=== PATIENT | female | born 1965 | race Caucasian/White ===

== ENCOUNTER 2021-12-23 11:55 | Inpatient (IN) | payer MEDICARE, MEDICAID, SELFPAY ==
[2021-12-23] VITALS (125 sets, daily range): BP systolic 63–133; BP diastolic 39–97; PULSE 74–140; RESP 13–41; TEMP 36.8–38.2; O2SAT 90–100
--- NOTE | 2021-12-23 12:00 | RT.EKG_ITS ---
APPROVED REPORT Exam: Resting ECG Reason for Exam: Low glucose Patient Location: E HR:104 bpm ECG Measurements Heart Rate 104 AXIS OH 162 P 74 QRSd 75 QRS -8 QT 338 T 84 QTc 445 Conclusion Sinus tachycardia...rate> 99
--- NOTE | 2021-12-23 12:00 | DI.CT_ITS ---
Exam(s) CT HEAD - STROKE PROTOCOL EXAM: CT HEAD - STROKE PROTOCOL CLINICAL HISTORY: comatose. TECHNIQUE: Imaging Protocol: Axial computed tomography images with coronal and sagittal reformatted images were created and reviewed COMPARISON: No exams were available for comparison FINDINGS: Ventricles and Extra axial spaces: Normal in size and morphology for the patient's age. Hemorrhage: None. Cerebral parenchyma: Normal. Midline shift: None. Brainstem/Cerebellum: Normal. Calvarium: Normal. Visualized Paranasal sinuses/Mastoids: Minimal mucosal thickening Soft Tissues: Unremarkable. IMPRESSION: No acute intracranial process. RADIATION DOSE DELIVERED: 666.01mGy.cm Total DLP DATA REPOSITORY: All CT scans at this facility are submitted to the National Radiology Data Registry (NRDR) Dose Index Registry (DIR) with the [employer] (A[employer]). RADIATION OPTIMIZATION: All CT scans at this facility use at least one of these dose optimization te chniques: automated exposure control; mA and/or kV adjustment per patient size (includes targeted exa ms where dose is matched to clinical indication); or iterative reconstruction.
--- NOTE | 2021-12-23 12:01 | DI.RAD_ITS ---
Exam(s) XR CHEST 1V IN DI DEPT EXAM: XR CHEST 1V IN DI DEPT CLINICAL HISTORY: unconscious TECHNIQUE: 2D digital imaging was performed. COMPARISON: No exams were available for comparison FINDINGS: There is an endotracheal tube with the tip projecting at the upper aspect of the aortic arch. LUNGS: Clear. No pleural abnormality seen. HEART: Normal. AORTA: Normal. BONES: Unremarkable for age. Soft tissues: Unremarkable. IMPRESSION: Satisfactory position of endotracheal tube. No acute pulmonary findings. DATA REPOSITORY: RADIATION DOSE DELIVERED:
[2021-12-23] MEDS: Dextrose 50%-Water 25 GM/50 ML SYR IVP ×3 (12:10→16:16)
[2021-12-23] MEDS: Naloxone 0.4 MG/ML VIAL IVP (12:11)
[2021-12-23] MEDS: Etomidate 20 MG/10 ML VIAL IVP (12:15)
[2021-12-23] MEDS: Succinylcholine 200 MG/10 ML VIAL 100 MG IVP (12:15)
[2021-12-23] MEDS: MIDAZOLAM 50 MG in Normal Saline 90 ML 23.587 MG IV (12:23)
--- NOTE | 2021-12-23 12:24 | W.ED.GENAD ---
Discharge Plan Disposition Patient Disposition: [facility] IN[facility]IENT Condition: Stable Discharge Details Clinical Impression: Hypoglycemia Primary Care Provider: Unknown,Unknown ED Provider: Arnoldo Hammer Home Meds and New Rx's Prescriptions: No Action simvastatin 20 mg Tablet 20 mg PO DAILY docusate sodium [Colace] 100 mg Capsule 100 mg PO BID lisinopril 5 mg Tablet 5 mg PO DAILY albuterol 90 mcg/actuation Aerosol 180 mcg INHALATION Q6H Medical Decision Making 56-year-old female brought by [facility]. By report her glucose was 20 overnight and she received her regular NovoLog at 2 AM per bystanders report to EMS. EMS was called this midday for unconscious person. They arrived to find her hypoglycemic (40) and unconscious. She was administered glucagon by EMS with subsequent rise of fingerstick glucose to 80. 5 minutes prior to presentation the patient began to have decerebrate posturing. Patient arrives unresponsive with positive gag reflex, nasal trumpet is in place, she is nonverbal, eyes are closed, she withdraws from pain and demonstrates decerebrate posturing. Breath sounds are rhonchorous bilaterally. She is hyperventilating approximately 25 to 30 breaths/min. Placed on a environmental monitoring technician, IV access established, patient given 1 amp D50 despite the recent elevation on route by EMS of the glucose, as well as Narcan. These interventions had no effect. Patient subsequently intubated with 7.5 ET tube. We were able to obtain the patient's pharmacy records from the [facility]. Her prescriptions include Colace 100 mg twice daily, lisinopril 5 mg daily, simvastatin 20 mg daily, albuterol inhaler every 6 hours if needed, Lantus 60 units twice daily which was not filled since October 12 for 25-day supply, NovoLog which has not filled in over a year, and diltiazem ER 120 daily. Broad differential diagnosis considered including metabolic abnormality, effects of prolonged hypoglycemia, infectious process, anoxic brain injury, supratentorial lesion such as hemorrhage/mass. Patient referred for laboratory testing, CT imaging and chest x-ray. Diagnostic studies: CT head read as unremarkable. Chest x-ray does not reveal active disease. Labs: ABG . Her blood cell count is elevated at 18, hematocrit 36, platelets 285. There is a left shift present. Chemistries reveal sodium 139, potassium 3.1, bicarb 30, BUN 6, creatinine 0.7. Glucose measured at 74, magnesium 1.6. LFTs unremarkable. Troponin negative. Family (her aunt, Cintia Arana) will report that patient recently moved to their home, she has been there approximately 2 weeks. She moved from her sister's home, Mandy Ornelas, who's number [phone]. They are unsure of her regular medical care and do not know her regular physician. They states she has had poor and intermittent ongoing care for some months time, which led her to transition to their home. Patient was noted to be alert and awake yesterday afternoon, able to go to the grocery store. They confirmed that she had a glucose of 24 overnight at approximately 2 AM and was given what is believed to be short acting insulin (novolog) as her current caregiver state they were told to do this if her sugar was low. Per her aunt Cintia and her Sister Mandy, the patient's power of employee benefits attorney and decision may be held by her stepfather Franco Elam. The family is to have him call the ER when they are able to make contact with him. The patient's vital signs have stabilized, she no longer has decerebrate posturing. I believe she likely had prolonged hypoglycemia and end organ effect on the brain with injury causing coma. She will require admission for further management. Lab Data Lab results reviewed: Yes I reviewed the patient's lab results. Labs: Laboratory Results - last 24 hr 12/23/21 12/23/21 12/23/21 12:05 12:05 12:05 WBC 18.32 H RBC 4.38 Hgb 12.8 Hct 36.8 MCV 84 MCH 29.2 MCHC 34.8 RDW 12.2 Plt Count 285 MPV 10.9 Immature Gran % 0.5 Neutrophils % 89.5 Lymphocytes % 4.9 Monocytes % 4.9 Eosinophils % 0.0 Basophils % 0.2 Nucleated RBC % 0.0 Absolute Neutrophils 16.40 H Absolute Lymphocytes 0.90 L Absolute Monocytes 0.90 H Absolute Eosinophils 0.00 Absolute Basophils 0.04 VBG Lactate Sodium 139 Potassium 3.7 Chloride 101 Carbon Dioxide 30.0 Anion Gap 8.0 BUN 6 L Creatinine 0.7 Est GFR (CKD-EPI 2020) 102.71 Glucose 74 Calcium 9.3 Magnesium 1.6 L Total Bilirubin 0.4 AST 26 ALT 16 Alkaline Phosphatase 62 Troponin I < 50 Total Protein 8.4 H Albumin 3.8 Ethyl Alcohol < 3.0 Cancelled 12/23/21 13:40 WBC RBC Hgb Hct MCV MCH MCHC RDW Plt Count MPV Immature Gran % Neutrophils % Lymphocytes % Monocytes % Eosinophils % Basophils % Nucleated RBC % Absolute Neutrophils Absolute Lymphocytes Absolute Monocytes Absolute Eosinophils Absolute Basophils VBG Lactate 1.5 H Sodium Potassium Chloride Carbon Dioxide Anion Gap BUN Creatinine Est GFR (CKD-EPI 2020) Glucose Calcium Magnesium Total Bilirubin AST ALT Alkaline Phosphatase Troponin I Total Protein Albumin Ethyl Alcohol HPI General Mode of arrival: EMS. Date/Time Provider Initiated Documentation: 12/23/21 12:30. Limitations to Documentation: altered mental status. Information obtained by: EMS. History of Present Illness 56 year old F presents to the emergency department with the chief complaint of Unconscious, described as severe, Quality is described as constant, Patient started experiencing this hour(s) and it has been constant. No exacerbating factors reported . Patient did receive the following treatments prior to arrival, other (Glucagon by EMS) Related Data Home Medications Medication Instructions Recorded Confirmed albuterol 90 mcg/actuation aerosol 180 mcg inhalation Q6H 12/23/21 12/23/21 inhaler docusate sodium 100 mg capsule 100 mg PO BID 12/23/21 12/23/21 (Colace) lisinopril 5 mg tablet 5 mg PO DAILY 12/23/21 12/23/21 simvastatin 20 mg tablet 20 mg PO DAILY 12/23/21 12/23/21 Allergies Allergy/AdvReac Type Severity Reaction Status Date / Time codeine AdvReac Intermediate Skin Rash Unverified 12/23/21 14:42 General Stated Complaint: AMS/LOC KAMLA: 1 Review of Systems Unobtainable due to endotracheal tube and Unobtainable due to mental status PFSH All Active Problems (Updated 12/23/21 @ 14:51 by Arnoldo Hammer MD) Hypoglycemia (Acute) Social History Smoking risk assessment performed?: No Exam Narrative Exam Narrative: GEN: Positive gag reflex, withdraws to pain HEAD: Normocephalic, atraumatic ENT: Mucous membranes moist, oropharynx unremarkable, External ear exam unremarkable EYES: Disconjugate gaze, pupils are fixed and midrange NECK: Supple with normal musculature CHEST/RESP: Diffuse rhonchorous breath sounds CARDIOVASCULAR: Regular and tachycardic, no murmur, rub aida. Palpable rad pulse bilateral ABDOMEN: Soft, nontender, no mass. +Bowel sounds EXT: no edema, no rash Neuro: No verbal response, withdraws from pain, decerebrate posturing, eyes closed Psych: Unable to assess Procedures Intubation Time out performed: Yes sedative: Etomidate Mg Given: 10 paralytic: Succinylcholine Mg Given: 100 Laryngoscope: Nicholas ET Tube Size: 7.5 ET Tube Uncuffed: Yes Tube Secured Depth (cm): 23 Tube Secured Location: teeth Tube Placement Confirmation: visualized tube passing through cords and equal breath sounds bilaterally Patient Tolerated Procedure: well Intubation Complications: none
[2021-12-23] MEDS: Midazolam 2 MG/2 ML VIAL IVP ×2 (12:26→15:04)
--- NOTE | 2021-12-23 12:48 | DI.VRAD_ITS ---
PROCEDURE INFORMATION: Exam: CT Head Without Contrast Exam date and time: 12/23/2021 12:40 PM Age: 56 years old Clinical indication: Stroke-like symptoms; Other: Comotose TECHNIQUE: Imaging protocol: Computed tomography of the head without contrast. Other technique: STROKE PROTOCOL was implemented. COMPARISON: No relevant prior studies available. FINDINGS: Brain: Normal. No intraxial or extraaxial hemorrhage. No infarct visible at this time. Unremarkable white matter. No mass effect. No significant involutional change. Cerebral ventricles: Normal. No ventriculomegaly or midline shift. Pituitary gland and sella: Normal. No enlargement. Paranasal sinuses: Visualized sinuses are unremarkable. No fluid levels or mucosal thickening. Mastoid air cells: Visualized mastoid air cells are well aerated. Bones/joints: Unremarkable. No acute fracture. Soft tissues: Unremarkable. Vasculature: No significant atherosclerotic calcification. IMPRESSION: Normal head CT. ASSESSMENT: ASPECTS ([place] Stroke Program Early CT Score) is 10. Dictated and Authenticated by: Arnoldo Ray MD. Ordering:KAREN Mclaughlin MD
--- NOTE | 2021-12-23 12:59 | DI.VRAD_ITS ---
PROCEDURE INFORMATION: Exam: XR Chest Exam date and time: 12/23/2021 12:32 PM Age: 56 years old Clinical indication: Injury or trauma; Other: Found comotose TECHNIQUE: Imaging protocol: Radiologic exam of the chest. Views: 1 view. COMPARISON: No relevant prior studies available. FINDINGS: Tubes, catheters and devices: Endotracheal tube is in place about 4.5 cm above the jen. Lungs: Lungs are clear with no infiltrate or nodule. Pleural spaces: Unremarkable. No pleural effusion. No pneumothorax. Heart/Mediastinum: Cardiomediastinal silhouette is normal. Bones/joints: Unremarkable. Other findings: Patient is rotated [place]. IMPRESSION: No active cardiopulmonary disease. Dictated and Authenticated by: Arnoldo Ray MD. Ordering:KAREN Mclaughlin MD
[2021-12-23 13:01] LABS: Abs Immature Grans 0.09 10^3/uL (0.0-0.06); Absolute Basophil Count 0.04 10^3/uL (0.0-0.2); Basophils % 0.2; HCT 36.8 % (36.0-46.0); HGB 12.8 g/dL (11.2-15.7); Immature Grans % 0.5; Lymphocytes % 4.9; MCH 29.2 pg (27.0-33.0); MCHC 34.8 % (32.0-36.0); MCV 84 fL (80-95); MPV 10.9 fL (8.0-11.0); Monocytes % 4.9; Neutrophils % 89.5; Platelet Count 285 10^3/uL (130-400); RBC 4.38 10^6/uL (3.93-5.22); RDW 12.2 % (11.7-14.6); WBC 18.32 10^3/uL (4.4-10.8)
[2021-12-23 13:25] LABS: ALT 16 U/L (14-59); AST 26 U/L (15-37); Albumin 3.8 g/dL (3.4-5.0); Alkaline Phosphatase 62 U/L (46-116); BUN 6 mg/dL (7-18); Bilirubin, Total 0.4 mg/dL (0.2-1.0); CREATININE 0.7 mg/dL (0.55-1.02); Calcium 9.3 mg/dL (8.5-10.1); Chloride 101 mmol/L (98-107); Estimated GFR 102.71 (mL/min/1.73m2); Glucose 74 mg/dL (74-106); Magnesium 1.6 mg/dL (1.8-2.4); Potassium 3.7 mmol/L (3.5-5.1); Sodium 139 mmol/L (136-145); Total Protein 8.4 g/dL (6.4-8.2); Troponin I < 50 ng/L (<or=60)
[2021-12-23 13:26] LABS: ETHANOL BLOOD < 3.0 mg/dL (<10)
[2021-12-23 13:45] LABS: Lactate 1.5 mmol/L (0.6-1.4)
[2021-12-23] MEDS: levETIRAcetam 1,000 MG in Normal Saline 100 ML 400 MG IVPB (13:55)
[2021-12-23 13:57] LABS: INR 1.5 (0.9-1.1); Prothrombin Time 15.2 sec (9.3-11.0)
[2021-12-23] MEDS: Normal Saline 1,000 ML 1000 ML IV (13:57)
[2021-12-23 14:11] LABS: BE 2 mmol/L (-2-3); HCO3 26 mmol/L (22-26); pCO2 40 mmHg (35-45); pH 7.43 (7.35-7.45); sO2 96 % (95-98); tCO2 24 mmol/L (23-27)
[2021-12-23 14:15] LABS: FIO2 45 %; Site Left Radial
[2021-12-23 14:16] LABS: pO2 71 mmHg (80-105)
[2021-12-23 14:18] LABS: Salicylate < 2.8 mg/dL (<2.8)
[2021-12-23 14:20] LABS: Bilirubin Negative (Negative); Blood Small (Negative); Clarity Clear (Clear); Glucose >=1000 mg/dL (Negative); Ketones Negative (Negative); Leukocyte Esterase Negative (Negative); Nitrite Negative (Negative); Urobilinogen 0.2 EU/dL (Up TO 0.2); pH 8.5 (5-8)
[2021-12-23 14:20] LABS: Acetaminophen < 2 ug/mL (10-30)
[2021-12-23] MEDS: MAGNESIUM SULFATE 1 GM/100 ML BAG IVPB ×2 (14:22→18:41)
[2021-12-23 14:29] LABS: Bacteria Negative HPF (Negative); C & S Indicated? No; Casts 0-2 Hyaline LPF (Negative); Crystals Negative HPF (Negative); Epithelial Cells Few HPF (Negative); Mucus Trace (Negative)
[2021-12-23 14:47] LABS: *AMPHETAMINES SCREEN URINE Negative (Negative); *BARBITURATES SCREEN URINE Negative (Negative); *BENZODIAZEPINES SCREEN URINE Positive (Negative); Cannabinoids THC Negative (Negative); Cocaine Screen,Urine Negative (Negative); METHADONE URINE SCREEN Negative (Negative); OPIATES URINE SCREEN Negative (Negative)
[2021-12-23 14:52] LABS: Tricyclic Antidepressants Negative (Negative)
[2021-12-23 14:57] LABS: COVID-19 PCR Negative (Negative); Influenza A PCR Negative (Negative); Influenza B PCR Negative (Negative); RSV PCR Negative (Negative)
[2021-12-23 15:03] LABS: Source Nasopharynx
[2021-12-23] MEDS: DEXTROSE 10%-WATER 500 ML 50 ML IV (15:13)
[2021-12-23] MEDS: MIDAZOLAM 50 MG in Normal Saline 90 ML IV (15:26)
[2021-12-23] MEDS: ACETAMINOPHEN 1,000 MG/100 ML BTL 400 MG IVPB (16:02)
--- NOTE | 2021-12-23 16:33 | W.PM.HP.N ---
Date of service: 12/23/21 Time of Service: 16:33 Assessment and Plan Assessment and plan (1) Acute metabolic encephalopathy: Status: Acute Assessment and plan: unclear whether or not she had a seizure earlier however given her prior seizures and a prolonged hypoglycemia patient she should be covered for possible seizure. She got 1000 mg of Keppra in the emergency department. I will continue Keppra 1000 mg IV every 12 hours. Check EEG on Saturday. Check MRI of the brain on Saturday if she has not improved on her mental status. Consult neurology. Avoid hypotension and hypoxemia and hypoglycemia. Continue D10 drip continue mechanical ventilatory support with a focus on maintaining good oxygenation. Currently SPO2 is 100% on 50% FiO2. She is not requiring much PEEP which is currently at 5 cm. Avoid hyperventilation as this will drive down CO2 increase cerebral vasoconstriction. Critical care time spent interviewing family and examining the patient, reviewing studies, discussing case with patient's nurse and consulting physicians (Dr. Hammer) was 60 minutes (2) Hypoglycemia: Status: Acute Assessment and plan: Continue D10 drip monitor blood sugars every hour; goal is glucose 140 to 200 (3) Acute respiratory failure: Status: Acute Assessment and plan: secondary to above. continue (4) Hypomagnesemia: Status: Acute Assessment and plan: replace parenteral magnesium; monitor levels (5) Insulin-requiring or dependent type II diabetes mellitus: Status: Acute Assessment and plan: monitor glucose q1h and replace w/ D10; I will also give her LR to balance out the hypotonicity of the D10 and monitor her BMP; once her glucose has been pawel for 4hr I think the D10 can be replaced w/ D5LR History of Present Illness History of Present Illness Chief Complaint: coma, hypoglycemia Narrative: 53-year-old right handed female with a history of diabetes mellitus with chronic insulin use brought in by [facility] because of unconsciousness and hypoglycemia with a glucose of 40 upon EMS arrival. Patient was administered glucagon by EMS with a rise of her fingerstick blood sugar to 80. Patient was severely obtunded with positive gag reflex and had nasal trumpet in place she was nonverbal and was demonstrating decerebrate posturing. She had labored breathing hyperventilating at 30 breaths/min with sonorous and rhonchorous breath sounds. In the emergency department she was given 1 amp of dextrose 50% after IV access was established she was placed on a cardiac catheterization technologist and she was given Narcan with no improvement in her mental status. She was subsequently intubated with 7.[address] Arnoldo Hammer, emergency room physician, subsequently was able to obtain further history from the family as well as a medication list from her pharmacy at [facility] in [place]. Apparently the patient is supposed to take Lantus 60 units twice a day and last had a 25-day supply filled October 12, her NovoLog has not been filled in over a year, other prescriptions include Colace 100 mg twice daily, lisinopril 5 mg daily simvastatin 20 mg daily, albuterol inhaler every 6 hours as needed, diltiazem ER 120 mg daily. Patient has had an unsettled home life and is moved from family member to family member. Patient apparently recently moved to her aunts home, [place] where she has been staying for the past 2 weeks. Previous that she lives with her Sister Mandy Ornelas. Her aunt is unsure of who her regular medical care is through and who her regular physician is. However it is learned from the prescriptions from [facility] in [facility] the patient receives her care through [facility]. Family states patient was last known to be alert and awake yesterday afternoon was able to go the grocery store but around 2 AM the patient had a glucose level of 24 and the patient was given what is believed to be short acting insulin (NovoLog) as her current caregiver states they were told to do this if her sugar was low. Both her aunt Cintia and her Sister Mandy indicated that the patient's power of securities attorney and decision making was held by her stepfather Franco Elam. Home the family indicated they would contact and have them call the hospital. Patient's work-up included routine labs including a CMP which demonstrated normal renal function BUN of 6 creatinine 0.7 normal electrolytes with the exception of a magnesium of 1.6, normal LFTs, normal troponin I, CBC demonstrated white count 18,300 with no anemia hemoglobin 12.8 g hematocrit 36% platelet count 35,000. Coagulation studies were abnormal with an INR of 1.5 and a pro time of 15.2 blood lactate level on admission was elevated at 1.5 initial ABG on 45% FiO2 demonstrated pH 7.43, PCO2 of 40 PO2 71 bicarbonate 26. Unclear as to what the rest of her respiratory settings were on. Urinalysis is clear yellow with elevated specific gravity 1.020 and a pH 8.5 trace of protein small amount of blood 3-5 red cells 3-5 white cells negative for leukocyte Estrace and nitrates and a glucose level greater than thousand (this was obtained after being given D50) Image included chest x-ray that showed no active cardiopulmonary disease endotracheal tube was in place 4.5 cm above the jen. Noncontrast CT scan of the head was normal. ECG shows sinus tachycardia rate of [address] or T wave changes. Patient is now admitted to the hospital for treatment of hypoglycemic episode with possible hypoglycemic and/or an anoxic brain injury. Patient remains intubated on mechanical ventilation for airway protection and ventilatory support. Patient was started on D10 drip per my recommendation to Dr. 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; born w/ mental retardation Diverticulosis History of CVA (cerebrovascular accident) Hypercholesterolemia Psychiatric illness per ER documentation from [facility] Seizure per her sister, she has had prior seizures but is not on any AED; unclear cause; patient does not drink alcohol per her sister Mandy Surgical History (Updated 12/23/21 @ 17:42 by Nito Mejia MD) S/P tubal ligation Social History (Updated 12/23/21 @ 17:38 by Nito Mejia MD) Smoking/Tobacco Use Status: Never Smoking risk assessment performed?: Yes Alcohol Intake: never Drug use: Never Meds Allergies and Home Medications Allergies Allergy/AdvReac Type Severity Reaction Status Date / Time codeine AdvReac Intermediate Skin Rash Unverified 12/23/21 14:42 Home Medications Medication Instructions Recorded Confirmed Type albuterol 90 mcg/actuation aerosol 180 mcg inhalation Q6H 12/23/21 12/23/21 History inhaler docusate sodium 100 mg capsule 100 mg PO BID 12/23/21 12/23/21 History (Colace) lisinopril 5 mg tablet 5 mg PO DAILY 12/23/21 12/23/21 History simvastatin 20 mg tablet 20 mg PO DAILY 12/23/21 12/23/21 History Exam Narrative Exam Narrative: Red head middle-aged female who is intubated and mechanically ventilated and currently sedated on midazolam BP is low in the high 80's systolic which came up over 100 mm after discontinuation of midazolam drip HEENT: pupils pin point and nonreactive; negative Doll's eyes; no noticeable nystagmus w/ cold calorics but she did withdraw w/ shrugging her shoulder w/ stimulation; no scleral icterus; poor dentition; she has slight lip laceration/abrasion of the lower lip; no fasciculations of her tongue Neck: supple, no JVD; normal carotid pulses; no bruits; no adenopathy or thyromegaly Lungs: clear anteriorly; diminished breath sounds over the bases posteriorly Heart: RRR, no murmur, rub, gallop or thrill or heave; PMI is at apex, non-displaced Abdomen: soft, nontender, nondistended, a few scattered bowel sounds; no organomegaly Extremities: tatoo over her right arm; right wrist w/ skin abrasion; no purulent discharge, no edema or cyanosis; good capillary refill; she has multiple skin sores over her legs and arms that appear healing w/ scabs, she has abrasion over right patella w/ scab; left shoulder w/ what appears to have been needle injection sites; none of her skin sores appear to be infected, i.e. no purlent drainage; the one over her right wrist is fresh w/ serous drainage Neuro: she withdraws to painful stimulation; no gag reflex; pupils and ocular reflexes as noted above; Babinski is absent; (great toes down going and no fanning of other toes); she is not exhibiting decerebrate posturing which she was reportedly demonstrating in the ER Results Labs Result diagrams: 12/23/21 12:05 12/23/21 12:05 Labs: Laboratory Results - last 24 hr 12/23/21 12/23/21 12/23/21 12:05 12:05 12:05 WBC 18.32 H RBC 4.38 Hgb 12.8 Hct 36.8 MCV 84 MCH 29.2 MCHC 34.8 RDW 12.2 Plt Count 285 MPV 10.9 Immature Gran % 0.5 Neutrophils % 89.5 Lymphocytes % 4.9 Monocytes % 4.9 Eosinophils % 0.0 Basophils % 0.2 Nucleated RBC % 0.0 Absolute Neutrophils 16.40 H Absolute Lymphocytes 0.90 L Absolute Monocytes 0.90 H Absolute Eosinophils 0.00 Absolute Basophils 0.04 PT INR ABG Sample Site ABG pH ABG pCO2 ABG pO2 ABG HCO3 ABG Total CO2 ABG O2 Saturation ABG Base Excess VBG Lactate FiO2 Sodium 139 Potassium 3.7 Chloride 101 Carbon Dioxide 30.0 Anion Gap 8.0 BUN 6 L Creatinine 0.7 Est GFR (CKD-EPI 2020) 102.71 Glucose 74 Calcium 9.3 Magnesium 1.6 L Total Bilirubin 0.4 AST 26 ALT 16 Alkaline Phosphatase 62 Troponin I < 50 Total Protein 8.4 H Albumin 3.8 Urine Color Urine Clarity Urine pH Ur Specific Curtis Urine Protein Urine Ketones Urine Blood Urine Nitrite Urine Bilirubin Urine Urobilinogen Ur Leukocyte Esterase Urine RBC Urine WBC Ur Epithelial Cells Urine Crystals Urine Bacteria Urine Casts Urine Mucus Ur Culture Indicated? Urine Glucose Salicylates Urine Opiates Screen Urine Methadone Screen Acetaminophen Ur Barbiturates Screen Ur Tricyclics Screen Ur Amphetamines Screen U Benzodiazepines Scrn Urine Cocaine Screen Ur THC Screen Ethyl Alcohol < 3.0 Cancelled COVID-19 Source SARS-CoV-2 (PCR) Influenza Type A (PCR) Influenza Type B (PCR) RSV (PCR) 12/23/21 12/23/21 12/23/21 13:40 13:40 13:40 WBC RBC Hgb Hct MCV MCH MCHC RDW Plt Count MPV Immature Gran % Neutrophils % Lymphocytes % Monocytes % Eosinophils % Basophils % Nucleated RBC % Absolute Neutrophils Absolute Lymphocytes Absolute Monocytes Absolute Eosinophils Absolute Basophils PT 15.2 H INR 1.5 H ABG Sample Site ABG pH ABG pCO2 ABG pO2 ABG HCO3 ABG Total CO2 ABG O2 Saturation ABG Base Excess VBG Lactate 1.5 H FiO2 Sodium Potassium Chloride Carbon Dioxide Anion Gap BUN Creatinine Est GFR (CKD-EPI 2020) Glucose Calcium Magnesium Total Bilirubin AST ALT Alkaline Phosphatase Troponin I Total Protein Albumin Urine Color Urine Clarity Urine pH Ur Specific Curtis Urine Protein Urine Ketones Urine Blood Urine Nitrite Urine Bilirubin Urine Urobilinogen Ur Leukocyte Esterase Urine RBC Urine WBC Ur Epithelial Cells Urine Crystals Urine Bacteria Urine Casts Urine Mucus Ur Culture Indicated? Urine Glucose Salicylates < 2.8 Urine Opiates Screen Urine Methadone Screen Acetaminophen < 2 Ur Barbiturates Screen Ur Tricyclics Screen Ur Amphetamines Screen U Benzodiazepines Scrn Urine Cocaine Screen Ur THC Screen Ethyl Alcohol COVID-19 Source SARS-CoV-2 (PCR) Influenza Type A (PCR) Influenza Type B (PCR) RSV (PCR) 12/23/21 12/23/21 12/23/21 14:05 14:05 14:08 WBC RBC Hgb Hct MCV MCH MCHC RDW Plt Count MPV Immature Gran % Neutrophils % Lymphocytes % Monocytes % Eosinophils % Basophils % Nucleated RBC % Absolute Neutrophils Absolute Lymphocytes Absolute Monocytes Absolute Eosinophils Absolute Basophils PT INR ABG Sample Site Left Radial ABG pH 7.43 ABG pCO2 40 ABG pO2 71 L ABG HCO3 26 ABG Total CO2 24 ABG O2 Saturation 96 ABG Base Excess 2 VBG Lactate FiO2 45 Sodium Potassium Chloride Carbon Dioxide Anion Gap BUN Creatinine Est GFR (CKD-EPI 2020) Glucose Calcium Magnesium Total Bilirubin AST ALT Alkaline Phosphatase Troponin I Total Protein Albumin Urine Color Yellow Urine Clarity Clear Urine pH 8.5 H Ur Specific Curtis 1.020 Urine Protein Trace H Urine Ketones Negative Urine Blood Small H Urine Nitrite Negative Urine Bilirubin Negative Urine Urobilinogen 0.2 Ur Leukocyte Esterase Negative Urine RBC 3-5 H Urine WBC 3-5 Ur Epithelial Cells Few Urine Crystals Negative Urine Bacteria Negative Urine Casts 0-2 Hyaline Urine Mucus Trace Ur Culture Indicated? No Urine Glucose >=1000 H Salicylates Urine Opiates Screen Negative Urine Methadone Screen Negative Acetaminophen Ur Barbiturates Screen Negative Ur Tricyclics Screen Negative Ur Amphetamines Screen Negative U Benzodiazepines Scrn Positive A Urine Cocaine Screen Negative Ur THC Screen Negative Ethyl Alcohol COVID-19 Source SARS-CoV-2 (PCR) Influenza Type A (PCR) Influenza Type B (PCR) RSV (PCR) 12/23/21 14:10 WBC RBC Hgb Hct MCV MCH MCHC RDW Plt Count MPV Immature Gran % Neutrophils % Lymphocytes % Monocytes % Eosinophils % Basophils % Nucleated RBC % Absolute Neutrophils Absolute Lymphocytes Absolute Monocytes Absolute Eosinophils Absolute Basophils PT INR ABG Sample Site ABG pH ABG pCO2 ABG pO2 ABG HCO3 ABG Total CO2 ABG O2 Saturation ABG Base Excess VBG Lactate FiO2 Sodium Potassium Chloride Carbon Dioxide Anion Gap BUN Creatinine Est GFR (CKD-EPI 2020) Glucose Calcium Magnesium Total Bilirubin AST ALT Alkaline Phosphatase Troponin I Total Protein Albumin Urine Color Urine Clarity Urine pH Ur Specific Curtis Urine Protein Urine Ketones Urine Blood Urine Nitrite Urine Bilirubin Urine Urobilinogen Ur Leukocyte Esterase Urine RBC Urine WBC Ur Epithelial Cells Urine Crystals Urine Bacteria Urine Casts Urine Mucus Ur Culture Indicated? Urine Glucose Salicylates Urine Opiates Screen Urine Methadone Screen Acetaminophen Ur Barbiturates Screen Ur Tricyclics Screen Ur Amphetamines Screen U Benzodiazepines Scrn Urine Cocaine Screen Ur THC Screen Ethyl Alcohol COVID-19 Source Nasopharynx SARS-CoV-2 (PCR) Negative Influenza Type A (PCR) Negative Influenza Type B (PCR) Negative RSV (PCR) Negative Last Vital Signs Temp 38.2 C H 12/23/21 15:55 Pulse 113 H 12/23/21 16:00 Resp 33 H 12/23/21 16:01 BP 133/66 12/23/21 16:00 Pulse Ox 96 12/23/21 14:00
[2021-12-23 16:48] LABS: BE 1 mmol/L (-2-3); HCO3 26 mmol/L (22-26); pCO2 38 mmHg (35-45); pH 7.44 (7.35-7.45); pO2 215 mmHg (80-105)
[2021-12-23 16:51] LABS: Site Left Radial; sO2 > 99 % (95-98)
[2021-12-23 16:52] LABS: FIO2 60 %
[2021-12-23 17:30] LABS: Lab Add On Test DONE
[2021-12-23 17:53] LABS: Hemoglobin A1C 6.5 % (<5.7)
[2021-12-23] MEDS: AMPICILLIN/SULBACTAM 3 GM in Normal Saline 100 ML IVPB (18:30)
[2021-12-23] MEDS: Enoxaparin 40 MG/0.4 ML SYR SC (18:41)
[2021-12-23] MEDS: Pantoprazole 40 MG VIAL IVP (18:41)
[2021-12-23 18:49] LABS: Procalcitonin < 0.1 ng/mL
[2021-12-23 18:54] LABS: Troponin I < 50 ng/L (<or=60)
[2021-12-23] MEDS: Normal Saline 500 ML IV ×3 (20:10→23:11)
[2021-12-23] MEDS: Dextrose 50%-Water 25 GM/50 ML SYR (20:19)
[2021-12-23] MEDS: DEXTROSE 10%-WATER 500 ML 100 ML IV (20:56)
[2021-12-24] VITALS (154 sets, daily range): BP systolic 74–156; BP diastolic 37–84; PULSE 56–109; RESP 0–32; TEMP 36.9–38.2; O2SAT 93–100
[2021-12-24] MEDS: Normal Saline 500 ML IV (00:11)
[2021-12-24] MEDS: ACETAMINOPHEN 1,000 MG/100 ML BTL 400 MG IVPB ×2 (00:18→08:22)
[2021-12-24] MEDS: Dextrose 50%-Water 25 GM/50 ML SYR ×2 (00:38→06:31)
[2021-12-24] MEDS: levETIRAcetam 1,000 MG in Normal Saline 100 ML 400 MG IVPB ×2 (01:24→12:09)
[2021-12-24] MEDS: AMPICILLIN/SULBACTAM 3 GM in Normal Saline 100 ML IVPB ×3 (01:24→14:57)
[2021-12-24] MEDS: DEXTROSE 10%-WATER 500 ML 100 ML IV ×2 (01:49→07:09)
[2021-12-24] MEDS: Normal Saline 500 ML 30 ML IV (01:50)
--- NOTE | 2021-12-24 02:44 | DI.VRAD_ITS ---
PROCEDURE INFORMATION: Exam: XR Chest Exam date and time: 12/24/2021 1:51 AM Age: 56 years old Clinical indication: Other: Resp failure TECHNIQUE: Imaging protocol: Radiologic exam of the chest. Views: 1 view. COMPARISON: XR CHEST 1V IN DI DEPT 12/23/2021 12:32 PM FINDINGS: Tubes, catheters and devices: Endotracheal tube in place with tip approximately 2 there is proximal to the jen. Interval placement of enteric tube with distal tip and side port subdiaphragmatic in the stomach. Lungs: Lungs are adequately inflated and symmetric. No focal consolidation or pulmonary edema. Pleural spaces: No visible pleural effusion. No pneumothorax. Heart/Mediastinum: Cardiomediastinal contours within normal limits. Bones/joints: No acute osseous finding. IMPRESSION: 1. Interval placement of enteric tube with distal tip and side port subdiaphragmatic in the stomach. 2. Otherwise essentially stable portable chest radiograph. Dictated and Authenticated by: Jerzy Figueroa MD. Ordering:[facility] Roberto Beauchamp MD
[2021-12-24 06:25] LABS: Abs Immature Grans 0.07 10^3/uL (0.0-0.06); HCT 31.8 % (36.0-46.0); MCH 29.3 pg (27.0-33.0); MCHC 34.6 % (32.0-36.0); MCV 85 fL (80-95); MPV 10.9 fL (8.0-11.0); Platelet Count 259 10^3/uL (130-400); RBC 3.76 10^6/uL (3.93-5.22); RDW 12.6 % (11.7-14.6); RDW-SD 38.5 fL; WBC 17.28 10^3/uL (4.4-10.8)
[2021-12-24 06:45] LABS: ALT 16 U/L (14-59); AST 53 U/L (15-37); Absolute Lymphocyte Count 5.01 10^3/uL (1.2-3.4); Absolute Monocyte Count 2.25 10^3/uL (0.1-0.8); Absolute Neutrophil Count 10.02 10^3/uL (1.2-6.7); Albumin 2.6 g/dL (3.4-5.0); Alkaline Phosphatase 45 U/L (46-116); Anion Gap 7.5 mmol/L (3-11); BUN 6 mg/dL (7-18); Bilirubin, Total 0.8 mg/dL (0.2-1.0); CO2 27.5 mmol/L (21.0-32.0); CREATININE 0.8 mg/dL (0.55-1.02); Calcium 8.2 mg/dL (8.5-10.1); Chloride 107 mmol/L (98-107); Glucose 80 mg/dL (74-106); Sodium 142 mmol/L (136-145); Total Protein 6.1 g/dL (6.4-8.2)
[2021-12-24 06:46] LABS: Diff Comment Manual Differential; RBC Morphology Normal
[2021-12-24 07:55] LABS: BE (Venous) 0 mmol/L (-2-3); HCO3 (Venous) 26 mmol/L (23-28); O2 Sat (Venous) 72 %; TCO2 (Venous) 24 mmol/L (24-29); pCO2 (Venous) 52 mmHg (41-51); pH (Venous) 7.32 (7.31-7.41); pO2 (Venous) 39 mmHg
[2021-12-24] MEDS: POTASSIUM CHLORIDE 20 MEQ/100 ML BAG 50 MEQ IVPB ×2 (08:21→10:10)
--- NOTE | 2021-12-24 08:24 | W.PM.PROGNOT ---
Date of Service Date of service: 12/24/21 Time of Service: 08:24 Assessment and Plan Assessment and plan (1) Acute metabolic encephalopathy: Status: Acute Assessment and plan: secondary to prolonged hypoglycemia. apparently she was also on a sulfonylurea agent as well as insulin. Allegedly she was mistakenly given insulin (unclear whether novolog or lantus) instead of glucagon when her family found her glucose to be 20 around 2 am on Saturday and this led to her prolonged hypoglycemia. See admission note and ER notes for details. Patient continues to have varible low glucose readings requiring intermittent boluses of D50 and she remains on D10W drip. It is unclear as to how hypoxic she got. On arrival to the ED her SPO2 was 90% on room air on arrival. however she was intubated d/t being obtunded and inability to protect her airway despite glucagon and D50 and narcan. She is more responsive to day however she does not follow commands nor initiate any voluntary movements. CT w/out contrast yesterday was negative. EEG has been ordered for Saturday (Saturday is holiday and EEG not available). On presentation to the ED she was demonstrating some decerebrate posturing. It was unclear as to whether or not she had a seizure but her sister gave hx that patient has had seizures in the past although unclear as to the surrounding circumstances and patient has not been on any AED's. Patient is currently on keppra 1000 mg IV q12h for seizure prevention. I will get MRI of the brain on Saturday if she does not awake fully. 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 D10 drip; D5LR+ 20 meq KCl was also added to prevent hyponatremia; correct hypokalemia and also to add to her glucose. If in fact she had been taking a sulfonylurea and the insulin that was mistakenly given was Lantus, then her hypoglycemia may be prolonged. However I expect that after today she should metabolize this out of her system as she has normal liver and renal function. (3) Acute respiratory failure: Status: Acute Assessment and plan: secondary to obtunded from hypoglycemia; however, I suspect aspiration pneumonia although CXR is not showing consolidation yet; she has rhonchorous breath sounds and nursing and RT have been suctioning thick purulent sputum. I have sent off for cultures for routine bacterial, mycoplasma PCR; urine sent for strep antigen and legionella antigen however, I think this is more likely d/t aspiration than CAP. I put her empirically put her on Unasyn but will add azithromycin for coverage of atypicals change prn bronchodilators to sheduled No indication for corticosteroids cont. mechanical vent support until she is more awake and can follow commands and can protect her airway; use Precedex prn if she becomes more agitated. (4) Aspiration pneumonia: Status: Acute Assessment and plan: as above (5) Hypokalemia: Status: Acute Assessment and plan: replace and recheck (6) Hypomagnesemia: Status: Acute Assessment and plan: corrected yesterday and within normal; monitor daily (7) Insulin-requiring or dependent type II diabetes mellitus: Status: Acute Assessment and plan: glycohemoglobin A1c is 6.5% suggesting she has been either tightly controlled or she has wide swings of hyperglycemia followed by hypoglycemia causing her A1c to average out. More information is needed from family and her PCP. This patient should have a GCM and perhaps she would be better on a degludec as this is associated w/ less hypoglycemia and similar control to glargine. Family needs more education on the use of insulin and the use of glucagon for treatment of hypoglycemia. If she has not been referred to endocrinology then this should occur at discharge. If in fact she has been on a sulfonylurea then this should be stopped. Subjective Subjective Interval history since last seen: Patient remains intubated and mechanically ventilated. She is not requiring any sedation. She remains on D10 drip due to low blood sugars. She required some fluid boluses last night and initiation of norepinephrine due to hypotension. BP currently stable on NE @ 0.07 mcg/kg/min. she is tolerating the ventilator w/ low Paw 15 to 18 cm; SPO2 100% on FIO2 40%. She is having some rhonchi and RT is getting some thick brown yellow mucous. I had put her on Unasyn yesterday empirically for possible aspiration as she had fever and leukocytosis and had prolonged down time in which she was unable to protect her airway prior to her being intubated in the ED. Exam Narrative Exam Narrative: Patient is somnolent however she will open her eyes and withdraw to pain PERRL (pupils about 5 mm and reactive to direct and consensual light), EOMI Lungs: some scattered coarse rhonchi Heart: RRR w/ soft murmur over apex; no gallop or thrill or heave Abdomen: soft, nondistended, no organomegaly, no guarding Extremities: a number of healing sores over her legs; wound over right wrist w/ serous drainage Neuro: she seems more responsive and is beginning to open her eyes spontaneously, but not following any commands; she withdraws all of her limbs to stimulation; Babinski reflex is absent bilaterally Objective Last Vital Signs Temp 38.0 C H 12/24/21 04:00 Pulse 66 12/24/21 07:16 Resp 17 12/24/21 07:20 BP 114/49 L 12/24/21 07:16 Pulse Ox 100 12/24/21 07:20 Laboratory Results - last 24 hr 12/23/21 12/23/21 12/23/21 12:05 12:05 12:05 WBC 18.32 H RBC 4.38 Hgb 12.8 Hct 36.8 MCV 84 MCH 29.2 MCHC 34.8 RDW 12.2 Plt Count 285 MPV 10.9 Immature Gran % 0.5 Neutrophils % 89.5 Lymphocytes % 4.9 Monocytes % 4.9 Eosinophils % 0.0 Basophils % 0.2 Nucleated RBC % 0.0 Absolute Neutrophils 16.40 H Absolute Lymphocytes 0.90 L Absolute Monocytes 0.90 H Absolute Eosinophils 0.00 Absolute Basophils 0.04 RBC Morphology PT INR ABG Sample Site ABG pH ABG pCO2 ABG pO2 ABG HCO3 ABG Total CO2 ABG O2 Saturation ABG Base Excess VBG pH VBG pCO2 VBG pO2 VBG HCO3 VBG Total CO2 VBG O2 Saturation VBG Base Excess VBG Lactate FiO2 Sodium 139 Potassium 3.7 Chloride 101 Carbon Dioxide 30.0 Anion Gap 8.0 BUN 6 L Creatinine 0.7 Est GFR (CKD-EPI 2020) 102.71 Glucose 74 Hemoglobin A1c Calcium 9.3 Magnesium 1.6 L Total Bilirubin 0.4 AST 26 ALT 16 Alkaline Phosphatase 62 Troponin I < 50 Total Protein 8.4 H Albumin 3.8 Procalcitonin Urine Color Urine Clarity Urine pH Ur Specific [place] Urine Protein Urine Ketones Urine Blood Urine Nitrite Urine Bilirubin Urine Urobilinogen Ur Leukocyte Esterase Urine RBC Urine WBC Ur Epithelial Cells Urine Crystals Urine Bacteria Urine Casts Urine Mucus Ur Culture Indicated? Urine Glucose Salicylates Urine Opiates Screen Urine Methadone Screen Acetaminophen Ur Barbiturates Screen Ur Tricyclics Screen Ur Amphetamines Screen U Benzodiazepines Scrn Urine Cocaine Screen Ur THC Screen Ethyl Alcohol < 3.0 Cancelled COVID-19 Source SARS-CoV-2 (PCR) Influenza Type A (PCR) Influenza Type B (PCR) RSV (PCR) Add-On Test Request 12/23/21 12/23/21 12/23/21 12:05 12:05 12:05 WBC RBC Hgb Hct MCV MCH MCHC RDW Plt Count MPV Immature Gran % Neutrophils % Lymphocytes % Monocytes % Eosinophils % Basophils % Nucleated RBC % Absolute Neutrophils Absolute Lymphocytes Absolute Monocytes Absolute Eosinophils Absolute Basophils RBC Morphology PT INR ABG Sample Site ABG pH ABG pCO2 ABG pO2 ABG HCO3 ABG Total CO2 ABG O2 Saturation ABG Base Excess VBG pH VBG pCO2 VBG pO2 VBG HCO3 VBG Total CO2 VBG O2 Saturation VBG Base Excess VBG Lactate FiO2 Sodium Potassium Chloride Carbon Dioxide Anion Gap BUN Creatinine Est GFR (CKD-EPI 2020) Glucose Hemoglobin A1c 6.5 H Calcium Magnesium Total Bilirubin AST ALT Alkaline Phosphatase Troponin I Total Protein Albumin Procalcitonin < 0.1 Urine Color Urine Clarity Urine pH Ur Specific [place] Urine Protein Urine Ketones Urine Blood Urine Nitrite Urine Bilirubin Urine Urobilinogen Ur Leukocyte Esterase Urine RBC Urine WBC Ur Epithelial Cells Urine Crystals Urine Bacteria Urine Casts Urine Mucus Ur Culture Indicated? Urine Glucose Salicylates Urine Opiates Screen Urine Methadone Screen Acetaminophen Ur Barbiturates Screen Ur Tricyclics Screen Ur Amphetamines Screen U Benzodiazepines Scrn Urine Cocaine Screen Ur THC Screen Ethyl Alcohol COVID-19 Source SARS-CoV-2 (PCR) Influenza Type A (PCR) Influenza Type B (PCR) RSV (PCR) Add-On Test Request DONE 12/23/21 12/23/21 12/23/21 13:40 13:40 13:40 WBC RBC Hgb Hct MCV MCH MCHC RDW Plt Count MPV Immature Gran % Neutrophils % Lymphocytes % Monocytes % Eosinophils % Basophils % Nucleated RBC % Absolute Neutrophils Absolute Lymphocytes Absolute Monocytes Absolute Eosinophils Absolute Basophils RBC Morphology PT 15.2 H INR 1.5 H ABG Sample Site ABG pH ABG pCO2 ABG pO2 ABG HCO3 ABG Total CO2 ABG O2 Saturation ABG Base Excess VBG pH VBG pCO2 VBG pO2 VBG HCO3 VBG Total CO2 VBG O2 Saturation VBG Base Excess VBG Lactate 1.5 H FiO2 Sodium Potassium Chloride Carbon Dioxide Anion Gap BUN Creatinine Est GFR (CKD-EPI 2020) Glucose Hemoglobin A1c Calcium Magnesium Total Bilirubin AST ALT Alkaline Phosphatase Troponin I Total Protein Albumin Procalcitonin Urine Color Urine Clarity Urine pH Ur Specific [place] Urine Protein Urine Ketones Urine Blood Urine Nitrite Urine Bilirubin Urine Urobilinogen Ur Leukocyte Esterase Urine RBC Urine WBC Ur Epithelial Cells Urine Crystals Urine Bacteria Urine Casts Urine Mucus Ur Culture Indicated? Urine Glucose Salicylates < 2.8 Urine Opiates Screen Urine Methadone Screen Acetaminophen < 2 Ur Barbiturates Screen Ur Tricyclics Screen Ur Amphetamines Screen U Benzodiazepines Scrn Urine Cocaine Screen Ur THC Screen Ethyl Alcohol COVID-19 Source SARS-CoV-2 (PCR) Influenza Type A (PCR) Influenza Type B (PCR) RSV (PCR) Add-On Test Request 12/23/21 12/23/21 12/23/21 14:05 14:05 14:08 WBC RBC Hgb Hct MCV MCH MCHC RDW Plt Count MPV Immature Gran % Neutrophils % Lymphocytes % Monocytes % Eosinophils % Basophils % Nucleated RBC % Absolute Neutrophils Absolute Lymphocytes Absolute Monocytes Absolute Eosinophils Absolute Basophils RBC Morphology PT INR ABG Sample Site Left Radial ABG pH 7.43 ABG pCO2 40 ABG pO2 71 L ABG HCO3 26 ABG Total CO2 24 ABG O2 Saturation 96 ABG Base Excess 2 VBG pH VBG pCO2 VBG pO2 VBG HCO3 VBG Total CO2 VBG O2 Saturation VBG Base Excess VBG Lactate FiO2 45 Sodium Potassium Chloride Carbon Dioxide Anion Gap BUN Creatinine Est GFR (CKD-EPI 2020) Glucose Hemoglobin A1c Calcium Magnesium Total Bilirubin AST ALT Alkaline Phosphatase Troponin I Total Protein Albumin Procalcitonin Urine Color Yellow Urine Clarity Clear Urine pH 8.5 H Ur Specific [place] 1.020 Urine Protein Trace H Urine Ketones Negative Urine Blood Small H Urine Nitrite Negative Urine Bilirubin Negative Urine Urobilinogen 0.2 Ur Leukocyte Esterase Negative Urine RBC 3-5 H Urine WBC 3-5 Ur Epithelial Cells Few Urine Crystals Negative Urine Bacteria Negative Urine Casts 0-2 Hyaline Urine Mucus Trace Ur Culture Indicated? No Urine Glucose >=1000 H Salicylates Urine Opiates Screen Negative Urine Methadone Screen Negative Acetaminophen Ur Barbiturates Screen Negative Ur Tricyclics Screen Negative Ur Amphetamines Screen Negative U Benzodiazepines Scrn Positive A Urine Cocaine Screen Negative Ur THC Screen Negative Ethyl Alcohol COVID-19 Source SARS-CoV-2 (PCR) Influenza Type A (PCR) Influenza Type B (PCR) RSV (PCR) Add-On Test Request 12/23/21 12/23/21 12/23/21 14:10 15:01 16:45 WBC RBC Hgb Hct MCV MCH MCHC RDW Plt Count MPV Immature Gran % Neutrophils % Lymphocytes % Monocytes % Eosinophils % Basophils % Nucleated RBC % Absolute Neutrophils Absolute Lymphocytes Absolute Monocytes Absolute Eosinophils Absolute Basophils RBC Morphology PT INR ABG Sample Site Left Radial ABG pH 7.44 ABG pCO2 38 ABG pO2 215 H ABG HCO3 26 ABG Total CO2 ABG O2 Saturation > 99 H ABG Base Excess 1 VBG pH VBG pCO2 VBG pO2 VBG HCO3 VBG Total CO2 VBG O2 Saturation VBG Base Excess VBG Lactate FiO2 60 Sodium Potassium Chloride Carbon Dioxide Anion Gap BUN Creatinine Est GFR (CKD-EPI 2020) Glucose Hemoglobin A1c Calcium Magnesium Total Bilirubin AST ALT Alkaline Phosphatase Troponin I Cancelled Total Protein Albumin Procalcitonin Urine Color Urine Clarity Urine pH Ur Specific [place] Urine Protein Urine Ketones Urine Blood Urine Nitrite Urine Bilirubin Urine Urobilinogen Ur Leukocyte Esterase Urine RBC Urine WBC Ur Epithelial Cells Urine Crystals Urine Bacteria Urine Casts Urine Mucus Ur Culture Indicated? Urine Glucose Salicylates Urine Opiates Screen Urine Methadone Screen Acetaminophen Ur Barbiturates Screen Ur Tricyclics Screen Ur Amphetamines Screen U Benzodiazepines Scrn Urine Cocaine Screen Ur THC Screen Ethyl Alcohol COVID-19 Source Nasopharynx SARS-CoV-2 (PCR) Negative Influenza Type A (PCR) Negative Influenza Type B (PCR) Negative RSV (PCR) Negative Add-On Test Request 12/23/21 12/24/21 12/24/21 18:17 05:25 05:25 WBC 17.28 H RBC 3.76 L Hgb 11.0 L Hct 31.8 L MCV 85 MCH 29.3 MCHC 34.6 RDW 12.6 Plt Count 259 MPV 10.9 Immature Gran % 0.0 Neutrophils % 58.0 Lymphocytes % 29.0 Monocytes % 13.0 Eosinophils % 0.0 Basophils % 0.0 Nucleated RBC % 0.0 Absolute Neutrophils 10.02 H Absolute Lymphocytes 5.01 H Absolute Monocytes 2.25 H Absolute Eosinophils 0.00 Absolute Basophils 0.00 RBC Morphology Normal PT INR ABG Sample Site ABG pH ABG pCO2 ABG pO2 ABG HCO3 ABG Total CO2 ABG O2 Saturation ABG Base Excess VBG pH VBG pCO2 VBG pO2 VBG HCO3 VBG Total CO2 VBG O2 Saturation VBG Base Excess VBG Lactate FiO2 Sodium 142 Potassium 3.0 L Chloride 107 Carbon Dioxide 27.5 Anion Gap 7.5 BUN 6 L Creatinine 0.8 Est GFR (CKD-EPI 2020) 87.50 Glucose 80 Hemoglobin A1c Calcium 8.2 L Magnesium 2.0 Total Bilirubin 0.8 AST 53 H ALT 16 Alkaline Phosphatase 45 L Troponin I < 50 Total Protein 6.1 L Albumin 2.6 L Procalcitonin Urine Color Urine Clarity Urine pH Ur Specific [place] Urine Protein Urine Ketones Urine Blood Urine Nitrite Urine Bilirubin Urine Urobilinogen Ur Leukocyte Esterase Urine RBC Urine WBC Ur Epithelial Cells Urine Crystals Urine Bacteria Urine Casts Urine Mucus Ur Culture Indicated? Urine Glucose Salicylates Urine Opiates Screen Urine Methadone Screen Acetaminophen Ur Barbiturates Screen Ur Tricyclics Screen Ur Amphetamines Screen U Benzodiazepines Scrn Urine Cocaine Screen Ur THC Screen Ethyl Alcohol COVID-19 Source SARS-CoV-2 (PCR) Influenza Type A (PCR) Influenza Type B (PCR) RSV (PCR) Add-On Test Request 12/24/21 07:50 WBC RBC Hgb Hct MCV MCH MCHC RDW Plt Count MPV Immature Gran % Neutrophils % Lymphocytes % Monocytes % Eosinophils % Basophils % Nucleated RBC % Absolute Neutrophils Absolute Lymphocytes Absolute Monocytes Absolute Eosinophils Absolute Basophils RBC Morphology PT INR ABG Sample Site ABG pH ABG pCO2 ABG pO2 ABG HCO3 ABG Total CO2 ABG O2 Saturation ABG Base Excess VBG pH 7.32 VBG pCO2 52 H VBG pO2 39 VBG HCO3 26 VBG Total CO2 24 VBG O2 Saturation 72 VBG Base Excess 0 VBG Lactate FiO2 Sodium Potassium Chloride Carbon Dioxide Anion Gap BUN Creatinine Est GFR (CKD-EPI 2020) Glucose Hemoglobin A1c Calcium Magnesium Total Bilirubin AST ALT Alkaline Phosphatase Troponin I Total Protein Albumin Procalcitonin Urine Color Urine Clarity Urine pH Ur Specific [place] Urine Protein Urine Ketones Urine Blood Urine Nitrite Urine Bilirubin Urine Urobilinogen Ur Leukocyte Esterase Urine RBC Urine WBC Ur Epithelial Cells Urine Crystals Urine Bacteria Urine Casts Urine Mucus Ur Culture Indicated? Urine Glucose Salicylates Urine Opiates Screen Urine Methadone Screen Acetaminophen Ur Barbiturates Screen Ur Tricyclics Screen Ur Amphetamines Screen U Benzodiazepines Scrn Urine Cocaine Screen Ur THC Screen Ethyl Alcohol COVID-19 Source SARS-CoV-2 (PCR) Influenza Type A (PCR) Influenza Type B (PCR) RSV (PCR) Add-On Test Request Reviewed Pertinent PMH: Yes
--- NOTE | 2021-12-24 08:30 | DI.RAD_ITS ---
Exam(s) XR PORTABLE CHEST AP EXAM: XR PORTABLE CHEST AP CLINICAL HISTORY: resp failure TECHNIQUE: 2D digital imaging was performed. COMPARISON: CR,XR XR CHEST 1V IN DI DEPT from 12/23/2021 FINDINGS: There has been no change in position of the endotracheal tube. A nasogastric tube has been inserted which projects in the fundus of the stomach. LUNGS: Suboptimally inflated but clear. No pleural abnormality seen. HEART: Normal. AORTA: Normal. BONES: Unremarkable for age. Soft tissues: Unremarkable. IMPRESSION: Satisfactory positioning of nasogastric tube. Lungs remain grossly clear. DATA REPOSITORY: RADIATION DOSE DELIVERED:
[2021-12-24] MEDS: Normal Saline Flush 10 ML SYR IVP (10:17)
[2021-12-24] MEDS: AZITHROMYCIN 500 MG in Normal Saline 250 ML 250 MG IVPB (10:30)
[2021-12-24] MEDS: Dextrose 50%-Water 25 GM/50 ML SYR IVP ×2 (11:27→12:57)
[2021-12-24] MEDS: LORazepam 20 MG/10 ML VIAL 4 MG IVP (12:20)
[2021-12-24 12:49] LABS: Bilirubin Negative (Negative); Blood Negative (Negative); Clarity Clear (Clear); Glucose 100 mg/dL (Negative); Ketones Negative (Negative); Leukocyte Esterase Negative (Negative); Nitrite Negative (Negative); Specific Gravity <= 1.005 (1.005-1.025); Urobilinogen 0.2 EU/dL (Up TO 0.2)
[2021-12-24] MEDS: Albuterol/Ipratropium 3 ML UPD VIAL UPD (12:49)
[2021-12-24] MEDS: LORazepam 20 MG/10 ML VIAL (12:58)
--- NOTE | 2021-12-24 13:18 | W.POCUS ---
Pocus Exam Limited Cardiac Exam DATE OF EXAM: 12/24/21 TIME OF EXAM: 13:18 REASON FOR EXAM: Evaluation of LV function, Hypotension and Hypoxia VISUALIZED STRUCTURES: four chambers, left atrium, left ventricle, right atrium, right ventricle, mitral valve and Interventricular septum VIEW OBTAINED: Parasternal long-axis and Subxiphoid PERTINENT FINDINGS/IMPRESSION: No apparent abnormalities Exam complete
--- NOTE | 2021-12-24 13:18 | W.EVENT ---
Date of service: 12/24/21 Time of Service: 12:00 Event Note: Called to see the patient for PEA, patient developed hypoxia w/ SPO2 in the 50's, rhythm remained SR throughout the event. Although carlos posada was called, it was never paged overhead. I was seen by nursing airplane flight attendant supervisor in the hallway gowned to go into a COVID room. I immediately came to the ICU to evaluate the patient and found the patient on the ventilator w/ SPO2 in the high 90's and stable BP and sinus rhythm in the 70's to 80's w/ strong palpable femoral pulse. However shortly after my arrival she was noted be having tonic/clonic movements of all her extremities. patient was treated w/ multiple doses of ativan 2 mg, followed by 4 mg and fosphenytoin 1200 mg (20 mg/kg) was ordered but before this was delivered from pharmacy the patient went into another tonic/clonic movement (after this had ceased after the total 6 mg lorazepam). She received another 4 mg lorazepam iv push and then I pushed propofol 100 mg (2 mg/kg) and ordered a propofol drip. Dr. Snyder was consulted for a-line and triple lumen CVC. I will be calling [facility] and [facility] neurology critical care for transfer for continuous EEG and management of status epilepticus. Critical care time spent interviewing and examining the patient, reviewing studies, discussing case with patient's nurse and consulting physicians was 60 minutes Time Spent with Patient Time spent in critical care(minutes): [place] get worse she is able Time Spent Included: Performing procedures not included in c.c time, Coordination of care, Documenting critically ill care, Time at immediate bedside, Discussing critically ill care with other medical staff and Discussing Hx and/or treatment with family
--- NOTE | 2021-12-24 13:21 | INITIAL_ITS ---
- If Service Date Differs Date of service: 12/24/21 Time of Service: 13:21 Care Management Initial Assess REASON FOR HOSPITALIZATION:: Hypoglycemic Coma. PAST MEDICAL HISTORY/PAST SURGICAL HISTORY:: All Active Problems: Hypothyroidism (acquired) (Acute), Essential hypertension (Acute), Insulin- requiring or dependent type II diabetes mellitus (Acute ~1991), Hypomagnesemia (Acute), Acute respiratory failure (Acute), Acute metabolic encephalopathy (Acute), and Hypoglycemia (Acute). 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 Surgical History: S/P tubal ligation. PREVIOUS FUNCTIONAL STATUS/SOCIAL/FAMILY SUPPORTS:: Cinda is a 56-year-old female who for the past 2 weeks has been living with her aunt in [place]. Prior to moving in with her aunt Cintia, Cinda lived with her sister, Mandy, for a period of time. Cinda has cognitive delays due to an intrauterine brain injury. CURRENT FUNCTIONAL STATUS:: Cinda is currently intubated and on mechanical ventilation. ADVANCE DIRECTIVES:: None on file but per provider note, step-father Franco Elam is patient's power of attorney general and decision maker. Has patient been provided with info about the portal/API?: No Did the patient sign up for the portal?: No CODE STATUS:: Full Code INSURANCE COVERAGE / FINANCIAL ISSUES:: Medicare and Medicaid. PRIMARY CARE PHYSICIAN:: Claudia Hamilton PA-C ([facility]). PLAN:: Cinda is awaiting transfer to [facility].
[2021-12-24 13:34] LABS: Troponin I < 50 ng/L (<or=60)
[2021-12-24 13:44] LABS: BE 0 mmol/L (-2-3); HCO3 25 mmol/L (22-26); pCO2 41 mmHg (35-45); pO2 57 mmHg (80-105); sO2 92 % (95-98); tCO2 24 mmol/L (23-27)
[2021-12-24 13:44] LABS: D-Dimer 859 ng/mlFEU (<500)
--- NOTE | 2021-12-24 13:47 | DI.RAD_ITS ---
Exam(s) XR PORTABLE CHEST AP POST LINE EXAM: XR PORTABLE CHEST AP POST LINE CLINICAL HISTORY: central line TECHNIQUE: 2D digital imaging was performed. COMPARISON: CR,XR XR PORTABLE CHEST AP from 12/24/2021 FINDINGS: A central line has been inserted via the right subclavian. The tip terminates in the superior vena c derek. There has been no change in the position of the endotracheal tube and nasogastric tube. LUNGS: Clear. No pleural abnormality seen. HEART: Normal. AORTA: Normal. BONES: Unremarkable for age. Soft tissues: Unremarkable. IMPRESSION: Satisfactory placement of right subclavian central venous catheter. No pneumothorax. DATA REPOSITORY: RADIATION DOSE DELIVERED:
[2021-12-24 13:50] LABS: FIO2 40 %; Site Left Radial
[2021-12-24 13:59] LABS: BE (Venous) -1 mmol/L (-2-3); HCO3 (Venous) 25 mmol/L (23-28); O2 Sat (Venous) 88 %; TCO2 (Venous) 23 mmol/L (24-29); pCO2 (Venous) 46 mmHg (41-51); pH (Venous) 7.34 (7.31-7.41); pO2 (Venous) 53 mmHg
[2021-12-24 14:01] LABS: Abs Immature Grans 0.04 10^3/uL (0.0-0.06); Absolute Basophil Count 0.05 10^3/uL (0.0-0.2); Absolute Eosinophil Count 0.04 10^3/uL (0.0-0.7); Absolute Lymphocyte Count 3.83 10^3/uL (1.2-3.4); Absolute Monocyte Count 0.97 10^3/uL (0.1-0.8); Absolute Neutrophil Count 8.14 10^3/uL (1.2-6.7); Basophils % 0.4; Eosinophils % 0.3; HCT 29.8 % (36.0-46.0); HGB 10.4 g/dL (11.2-15.7); Immature Grans % 0.3; Lymphocytes % 29.3; MCHC 34.9 % (32.0-36.0); MCV 86 fL (80-95); MPV 10.9 fL (8.0-11.0); Monocytes % 7.4; Neutrophils % 62.3; Platelet Count 215 10^3/uL (130-400); RBC 3.47 10^6/uL (3.93-5.22); RDW-SD 40.1 fL; WBC 13.07 10^3/uL (4.4-10.8)
[2021-12-24 14:02] LABS: Lactate 1.5 mmol/L (0.6-1.4)
--- NOTE | 2021-12-24 14:11 | DI.VRAD_ITS ---
PROCEDURE INFORMATION: Exam: XR Chest Exam date and time: 12/24/2021 1:45 PM Age: 56 years old Clinical indication: Device placement; Other: Central line TECHNIQUE: Imaging protocol: Radiologic exam of the chest. Views: 1 view. COMPARISON: XR PORTABLE CHEST AP 12/24/2021 1:51 AM FINDINGS: Tubes, catheters and devices: Right subclavian catheter is in place with the tip in the superior vena cava. Endotracheal tube is in place with the tip 5.2 cm above the level of the jen. Nasogastric tube in place. Lungs: Unremarkable. No consolidation. Pleural spaces: There is no evidence of pneumothorax. There are no pleural effusions present. Heart/Mediastinum: Unremarkable. No cardiomegaly. Bones/joints: Unremarkable. IMPRESSION: 1. Right subclavian catheter is in place with the tip in the superior vena cava. 2. There is no evidence of pneumothorax. Dictated and Authenticated by: Delmer Morris MD. Ordering:[facility] Roberto Beauchamp MD
[2021-12-24 14:16] LABS: ALT 17 U/L (14-59); AST 44 U/L (15-37); Albumin 2.4 g/dL (3.4-5.0); Alkaline Phosphatase 40 U/L (46-116); Anion Gap 3.4 mmol/L (3-11); BUN 4 mg/dL (7-18); Bilirubin, Total 0.5 mg/dL (0.2-1.0); CO2 26.6 mmol/L (21.0-32.0); CREATININE 0.7 mg/dL (0.55-1.02); Calcium 7.9 mg/dL (8.5-10.1); Chloride 109 mmol/L (98-107); Estimated GFR 102.71 (mL/min/1.73m2); Glucose 210 mg/dL (74-106); INR 1.3 (0.9-1.1); Magnesium 1.8 mg/dL (1.8-2.4); PTT Activated 25.6 sec (21.0-27.5); Potassium 3.5 mmol/L (3.5-5.1); Prothrombin Time 12.6 sec (9.3-11.0); Sodium 139 mmol/L (136-145); Total Protein 5.7 g/dL (6.4-8.2)
[2021-12-24] MEDS: PROPOFOL 1,000 MG/100 ML BTL 10.746 MG IVPB (14:20)
--- NOTE | 2021-12-24 14:46 | SCONE_ITS ---
Date of service: 12/24/21 Time of Service: 14:46 Assessment and Plan Assessment and plan (1) Lack of intravenous access: Status: Acute Assessment and plan: see procedure History of Present Illness Narrative: I was consulted to see this patient for a central line placement. She is a 56 year old female that was brought to the ER hypotensive and with severe hypoglycemia. She was intubated in the ICU. Today she continues to require levophed and getting several medications to try and stop her seizures. She doesn't have good peripheral IV access. 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; born w/ mental retardation Diverticulosis History of CVA (cerebrovascular accident) Hypercholesterolemia Psychiatric illness per ER documentation from [facility] Seizure per her sister, she has had prior seizures but is not on any AED; unclear cause; patient does not drink alcohol per her sister Mandy Surgical History S/P tubal ligation Social History Smoking/Tobacco Use Status: Never Smoking risk assessment performed?: Yes Alcohol Intake: never Drug use: Never Exam HENMD Head: normocephalic and atraumatic Results Last Vital Signs Temp 100.8 F H 12/24/21 08:45 Pulse 68 12/24/21 09:30 Resp 15 12/24/21 09:31 BP 102/49 L 12/24/21 09:30 Pulse Ox 99 12/24/21 09:31 Labs Result diagrams: 12/24/21 13:50 12/24/21 13:50 Labs: Laboratory Results - last 24 hr 12/23/21 12/23/21 12/23/21 12:05 12:05 12:05 WBC RBC Hgb Hct MCV MCH MCHC RDW Plt Count MPV Immature Gran % Neutrophils % Lymphocytes % Monocytes % Eosinophils % Basophils % Nucleated RBC % Absolute Neutrophils Absolute Lymphocytes Absolute Monocytes Absolute Eosinophils Absolute Basophils RBC Morphology PT INR APTT D-Dimer ABG Sample Site ABG pH ABG pCO2 ABG pO2 ABG HCO3 ABG Total CO2 ABG O2 Saturation ABG Base Excess VBG pH VBG pCO2 VBG pO2 VBG HCO3 VBG Total CO2 VBG O2 Saturation VBG Base Excess VBG Lactate FiO2 Sodium Potassium Chloride Carbon Dioxide Anion Gap BUN Creatinine Est GFR (CKD-EPI 2020) Glucose Hemoglobin A1c 6.5 H Calcium Magnesium Total Bilirubin AST ALT Alkaline Phosphatase Troponin I Total Protein Albumin Procalcitonin < 0.1 Urine Color Urine Clarity Urine pH Ur Specific [place] Urine Protein Urine Ketones Urine Blood Urine Nitrite Urine Bilirubin Urine Urobilinogen Ur Leukocyte Esterase Urine Glucose Urine Opiates Screen Urine Methadone Screen Ur Barbiturates Screen Ur Tricyclics Screen Ur Amphetamines Screen U Benzodiazepines Scrn Urine Cocaine Screen Ur THC Screen COVID-19 Source SARS-CoV-2 (PCR) Influenza Type A (PCR) Influenza Type B (PCR) RSV (PCR) Add-On Test Request DONE 12/23/21 12/23/21 12/23/21 14:05 14:10 15:01 WBC RBC Hgb Hct MCV MCH MCHC RDW Plt Count MPV Immature Gran % Neutrophils % Lymphocytes % Monocytes % Eosinophils % Basophils % Nucleated RBC % Absolute Neutrophils Absolute Lymphocytes Absolute Monocytes Absolute Eosinophils Absolute Basophils RBC Morphology PT INR APTT D-Dimer ABG Sample Site ABG pH ABG pCO2 ABG pO2 ABG HCO3 ABG Total CO2 ABG O2 Saturation ABG Base Excess VBG pH VBG pCO2 VBG pO2 VBG HCO3 VBG Total CO2 VBG O2 Saturation VBG Base Excess VBG Lactate FiO2 Sodium Potassium Chloride Carbon Dioxide Anion Gap BUN Creatinine Est GFR (CKD-EPI 2020) Glucose Hemoglobin A1c Calcium Magnesium Total Bilirubin AST ALT Alkaline Phosphatase Troponin I Cancelled Total Protein Albumin Procalcitonin Urine Color Urine Clarity Urine pH Ur Specific [place] Urine Protein Urine Ketones Urine Blood Urine Nitrite Urine Bilirubin Urine Urobilinogen Ur Leukocyte Esterase Urine Glucose Urine Opiates Screen Negative Urine Methadone Screen Negative Ur Barbiturates Screen Negative Ur Tricyclics Screen Negative Ur Amphetamines Screen Negative U Benzodiazepines Scrn Positive A Urine Cocaine Screen Negative Ur THC Screen Negative COVID-19 Source Nasopharynx SARS-CoV-2 (PCR) Negative Influenza Type A (PCR) Negative Influenza Type B (PCR) Negative RSV (PCR) Negative Add-On Test Request 12/23/21 12/23/21 12/24/21 16:45 18:17 05:25 WBC RBC Hgb Hct MCV MCH MCHC RDW Plt Count MPV Immature Gran % Neutrophils % Lymphocytes % Monocytes % Eosinophils % Basophils % Nucleated RBC % Absolute Neutrophils Absolute Lymphocytes Absolute Monocytes Absolute Eosinophils Absolute Basophils RBC Morphology PT INR APTT D-Dimer ABG Sample Site Left Radial ABG pH 7.44 ABG pCO2 38 ABG pO2 215 H ABG HCO3 26 ABG Total CO2 ABG O2 Saturation > 99 H ABG Base Excess 1 VBG pH VBG pCO2 VBG pO2 VBG HCO3 VBG Total CO2 VBG O2 Saturation VBG Base Excess VBG Lactate FiO2 60 Sodium 142 Potassium 3.0 L Chloride 107 Carbon Dioxide 27.5 Anion Gap 7.5 BUN 6 L Creatinine 0.8 Est GFR (CKD-EPI 2020) 87.50 Glucose 80 Hemoglobin A1c Calcium 8.2 L Magnesium 2.0 Total Bilirubin 0.8 AST 53 H ALT 16 Alkaline Phosphatase 45 L Troponin I < 50 Total Protein 6.1 L Albumin 2.6 L Procalcitonin Urine Color Urine Clarity Urine pH Ur Specific [place] Urine Protein Urine Ketones Urine Blood Urine Nitrite Urine Bilirubin Urine Urobilinogen Ur Leukocyte Esterase Urine Glucose Urine Opiates Screen Urine Methadone Screen Ur Barbiturates Screen Ur Tricyclics Screen Ur Amphetamines Screen U Benzodiazepines Scrn Urine Cocaine Screen Ur THC Screen COVID-19 Source SARS-CoV-2 (PCR) Influenza Type A (PCR) Influenza Type B (PCR) RSV (PCR) Add-On Test Request 12/24/21 12/24/21 12/24/21 05:25 07:50 12:00 WBC 17.28 H RBC 3.76 L Hgb 11.0 L Hct 31.8 L MCV 85 MCH 29.3 MCHC 34.6 RDW 12.6 Plt Count 259 MPV 10.9 Immature Gran % 0.0 Neutrophils % 58.0 Lymphocytes % 29.0 Monocytes % 13.0 Eosinophils % 0.0 Basophils % 0.0 Nucleated RBC % 0.0 Absolute Neutrophils 10.02 H Absolute Lymphocytes 5.01 H Absolute Monocytes 2.25 H Absolute Eosinophils 0.00 Absolute Basophils 0.00 RBC Morphology Normal PT INR APTT D-Dimer ABG Sample Site ABG pH ABG pCO2 ABG pO2 ABG HCO3 ABG Total CO2 ABG O2 Saturation ABG Base Excess VBG pH 7.32 VBG pCO2 52 H VBG pO2 39 VBG HCO3 26 VBG Total CO2 24 VBG O2 Saturation 72 VBG Base Excess 0 VBG Lactate FiO2 Sodium Potassium Chloride Carbon Dioxide Anion Gap BUN Creatinine Est GFR (CKD-EPI 2020) Glucose Hemoglobin A1c Calcium Magnesium Total Bilirubin AST ALT Alkaline Phosphatase Troponin I Total Protein Albumin Procalcitonin Urine Color Yellow Urine Clarity Clear Urine pH 6.0 Ur Specific [place] <= 1.005 Urine Protein Negative Urine Ketones Negative Urine Blood Negative Urine Nitrite Negative Urine Bilirubin Negative Urine Urobilinogen 0.2 Ur Leukocyte Esterase Negative Urine Glucose 100 Urine Opiates Screen Urine Methadone Screen Ur Barbiturates Screen Ur Tricyclics Screen Ur Amphetamines Screen U Benzodiazepines Scrn Urine Cocaine Screen Ur THC Screen COVID-19 Source SARS-CoV-2 (PCR) Influenza Type A (PCR) Influenza Type B (PCR) RSV (PCR) Add-On Test Request 12/24/21 12/24/21 12/24/21 13:05 13:05 13:35 WBC RBC Hgb Hct MCV MCH MCHC RDW Plt Count MPV Immature Gran % Neutrophils % Lymphocytes % Monocytes % Eosinophils % Basophils % Nucleated RBC % Absolute Neutrophils Absolute Lymphocytes Absolute Monocytes Absolute Eosinophils Absolute Basophils RBC Morphology PT INR APTT D-Dimer 859 H ABG Sample Site Left Radial ABG pH 7.40 ABG pCO2 41 ABG pO2 57 L ABG HCO3 25 ABG Total CO2 24 ABG O2 Saturation 92 L ABG Base Excess 0 VBG pH VBG pCO2 VBG pO2 VBG HCO3 VBG Total CO2 VBG O2 Saturation VBG Base Excess VBG Lactate FiO2 40 Sodium Potassium Chloride Carbon Dioxide Anion Gap BUN Creatinine Est GFR (CKD-EPI 2020) Glucose Hemoglobin A1c Calcium Magnesium Total Bilirubin AST ALT Alkaline Phosphatase Troponin I < 50 Total Protein Albumin Procalcitonin Urine Color Urine Clarity Urine pH Ur Specific [place] Urine Protein Urine Ketones Urine Blood Urine Nitrite Urine Bilirubin Urine Urobilinogen Ur Leukocyte Esterase Urine Glucose Urine Opiates Screen Urine Methadone Screen Ur Barbiturates Screen Ur Tricyclics Screen Ur Amphetamines Screen U Benzodiazepines Scrn Urine Cocaine Screen Ur THC Screen COVID-19 Source SARS-CoV-2 (PCR) Influenza Type A (PCR) Influenza Type B (PCR) RSV (PCR) Add-On Test Request 12/24/21 12/24/21 12/24/21 13:50 13:50 13:50 WBC 13.07 H RBC 3.47 L Hgb 10.4 L Hct 29.8 L MCV 86 MCH 30.0 MCHC 34.9 RDW 13.0 Plt Count 215 MPV 10.9 Immature Gran % 0.3 Neutrophils % 62.3 Lymphocytes % 29.3 Monocytes % 7.4 Eosinophils % 0.3 Basophils % 0.4 Nucleated RBC % 0.0 Absolute Neutrophils 8.14 H Absolute Lymphocytes 3.83 H Absolute Monocytes 0.97 H Absolute Eosinophils 0.04 Absolute Basophils 0.05 RBC Morphology PT 12.6 H INR 1.3 H APTT 25.6 D-Dimer ABG Sample Site ABG pH ABG pCO2 ABG pO2 ABG HCO3 ABG Total CO2 ABG O2 Saturation ABG Base Excess VBG pH VBG pCO2 VBG pO2 VBG HCO3 VBG Total CO2 VBG O2 Saturation VBG Base Excess VBG Lactate FiO2 Sodium Cancelled Potassium Cancelled Chloride Cancelled Carbon Dioxide Cancelled Anion Gap Cancelled BUN Cancelled Creatinine Cancelled Est GFR (CKD-EPI 2020) Cancelled Glucose Cancelled Hemoglobin A1c Calcium Cancelled Magnesium Total Bilirubin AST ALT Alkaline Phosphatase Troponin I Total Protein Albumin Procalcitonin Urine Color Urine Clarity Urine pH Ur Specific [place] Urine Protein Urine Ketones Urine Blood Urine Nitrite Urine Bilirubin Urine Urobilinogen Ur Leukocyte Esterase Urine Glucose Urine Opiates Screen Urine Methadone Screen Ur Barbiturates Screen Ur Tricyclics Screen Ur Amphetamines Screen U Benzodiazepines Scrn Urine Cocaine Screen Ur THC Screen COVID-19 Source SARS-CoV-2 (PCR) Influenza Type A (PCR) Influenza Type B (PCR) RSV (PCR) Add-On Test Request 12/24/21 12/24/21 12/24/21 13:50 13:50 13:50 WBC RBC Hgb Hct MCV MCH MCHC RDW Plt Count MPV Immature Gran % Neutrophils % Lymphocytes % Monocytes % Eosinophils % Basophils % Nucleated RBC % Absolute Neutrophils Absolute Lymphocytes Absolute Monocytes Absolute Eosinophils Absolute Basophils RBC Morphology PT INR APTT D-Dimer ABG Sample Site ABG pH ABG pCO2 ABG pO2 ABG HCO3 ABG Total CO2 ABG O2 Saturation ABG Base Excess VBG pH 7.34 VBG pCO2 46 VBG pO2 53 VBG HCO3 25 VBG Total CO2 23 L VBG O2 Saturation 88 VBG Base Excess -1 VBG Lactate 1.5 H FiO2 Sodium 139 Potassium 3.5 Chloride 109 H Carbon Dioxide 26.6 Anion Gap 3.4 BUN 4 L Creatinine 0.7 Est GFR (CKD-EPI 2020) 102.71 Glucose 210 H Hemoglobin A1c Calcium 7.9 L Magnesium 1.8 Total Bilirubin 0.5 AST 44 H ALT 17 Alkaline Phosphatase 40 L Troponin I Total Protein 5.7 L Albumin 2.4 L Procalcitonin Urine Color Urine Clarity Urine pH Ur Specific [place] Urine Protein Urine Ketones Urine Blood Urine Nitrite Urine Bilirubin Urine Urobilinogen Ur Leukocyte Esterase Urine Glucose Urine Opiates Screen Urine Methadone Screen Ur Barbiturates Screen Ur Tricyclics Screen Ur Amphetamines Screen U Benzodiazepines Scrn Urine Cocaine Screen Ur THC Screen COVID-19 Source SARS-CoV-2 (PCR) Influenza Type A (PCR) Influenza Type B (PCR) RSV (PCR) Add-On Test Request Procedures Central Line Placement Right SC: Time out performed: Yes Patient placed on monitor/pulse ox: Yes MD prep: mask, gown, gloves and other (hat) Central line prep: Chlorhexidine scrub Local anesthesia used: lidocaine 1% Amount of anesthesia used (ml): 5 Ultrasound used for placement: No Central line lumen inserted: triple Post procedure: sutured in place, good blood return, all ports aspirated, flushed, capped and sterile dressing applied Post procedure x-ray: tip of catheter in good position and no pneumothorax seen Patient tolerated procedure: well and no complications Additional comments: After informed consent was obtained from the family, the patient was placed in a supine position on her ICU bed. The head of the bed was lowered. A time o ut was done and her name, and procedure to be done were reviewed. Sharps were counted. The right chest wall was then prepped and draped in a standard fashion with chlorhexidine. Next 5 cc of 1% Lidocaine was injected into the dermis and subcutaneous tissue along the clavicle. The introducer needle was then slowly advanced into the subclavian vein. Once I was able to pull venous blood into the syringe, the syringe was removed from the needle. The guidewire was then placed easily witho ut resistance into the subclavian vein. The needle was removed. A small incision was made with an 11 blade next to the guidewire. The dilator was then placed over the guidewire into the vein. The dilator was removed and the tripple lumen cather was placed over the guidewire into the vein to 15 cm. The guidewire was removed and needless valves were placed on each lumen. Each lumen was then aspirated and flushed with sterile saline. The Central line was then secured in place with 2-0 silk suture. The skin was cleaned and dried and an antibiotic wheel was applied at the skin entrance. An occlusive dressing was then applied. The drapes were removed. Sharps were counted and were correct at the end of the procedure. The patient tolerated the procedure well. Stat CXR was ordered and was pending at the time of this dictation.
[2021-12-24] MEDS: levETIRAcetam 2,000 MG in Normal Saline 100 ML 400 MG IVPB (14:58)
--- NOTE | 2021-12-24 15:06 | W.PM.DS.N ---
Date of service: 12/24/21 Time of Service: 15:06 DS: Diagnosis Discharge Diagnosis (1) Status epilepticus: Status: Acute Asessment and Plan: Patient was admitted from home through the ED at [facility] with severe hypoglycemia unresponsive to glucagon and was unresponsive and showing decerebrate posturing in the emergency department. Unclear whether this was a seizure or just posturing secondary to severe brain injury from prolonged hypoglycemia. Patient was intubated in the emergency department and placed on a ventilator. Patient was bolused with Keppra 1000 mg and started on Keppra 1000 mg every 12 hours. Patient has an unclear history of previous seizure episodes but was not maintained on any home dose of antiepileptic drugs. EEG was not available at [facility]. Patient showed no further posturing behavior overnight although she remained comatose and on a D10 drip and required frequent boluses of dextrose 50% to maintain her blood sugar. Blood sugars were monitored every hour through the night. On the next day on 12/24/2021 around noon time patient was having rhythmic decerebrate posturing which she was not exhibiting in the morning. On her morning exam in spite of being stimulated she did not have any posturing behavior. As no EEG is available to see if these were seizures or not it was presumed that she was having seizure and she was given multiple doses of lorazepam for total 8 mg which seemed to break the tonic-clonic behavior. Patient then was bolused with 1200 mg of fosphenytoin but before this could be infused patient went into another round of rhythmic decerebrate posturing of her arms and her legs. At that point the patient was bolused with propofol 100 mg IV push and was also given a second bolus of 50 mg IV push and started on propofol drip at 30 mcg/kg/min. Call was placed to [facility] ([facility]) transfer center I spoke with Dr. Jerzy Campbell neurologist. I went over her case with him reviewing her presentation of severe hypoglycemia in setting of a insulin-dependent diabetic with baseline of high functioning mental retardation who was had prolonged hypoglycemia in spite being on D10 drip and repeated boluses of D50 who has required norepinephrine support for hypotension and mechanically ventilated for acute respiratory failure. Patient is on Unasyn and azithromycin for aspiration pneumonia. Initial CT scan of the head without contrast was unremarkable. Patient is going for another stat CT scan of the head to rule out cerebral edema. LP has not been performed yet. Dr. Campbell graciously excepted patient in transfer to their neuro ICU where the patient can undergo continuous EEG monitoring. I explained to him that the patient is currently on a propofol drip for sedation and since I spoke with him I rebolus the patient with 2000 mg of Keppra. (2) Acute respiratory failure: Status: Acute Asessment and Plan: patient was obtunded on admission and was intubated in the ER to protect her airway. family gives hx that she had vomited at home prior to arrival. initial CXR did not show any pneumonia but WBC was elevated to 18,000 and she has had fevers of 38.2 and today has had purulent sputum suctioned and sent for cultures. Patient was empirically started on Unasyn on arrival out of suspicion for aspiration pneumonia. WBC has declined to 13,000 today. Procalcitonin was <0.1 on admission and has not been repeated. Repeat CXR today still shows no consolidation. Patient has had no problems w/ high airway pressure and has easily been ventilated and oxygenated on 40%, AC w/ f 15, PEEP 5 cm, TV 380 mL. She did have an episode of acute oxygen desaturation at noon in which her oxygen saturation dropped to 45% and her nurse called for carlos blue for PEA, upon my immediate response I found that the patient was oxygenating in the mid to high 90's and she had a stable BP (albeit on norepinephrine 0.04 mcg/kg/min). I do not believe she ever lost her pulse. However she started to exhibit repetetive rhythmic decerebrate posturing that appeared to be a seizure. This was the same behavior she had exhibited in the ER but was not exhibiting this after admission to ICU yesterday after she had been bolused w/ Keppra 1000 mg and she was not exhibiting this behavior on morning rounds today. (3) Hypotension: Status: Acute Asessment and Plan: Unclear etiology of her hypotension as the patient was volume resuscitated. [id number] echocardiogram was performed she has normal RV and LV function. RV is not dilated. She has good wall motion. May be neurogenic cause possibly due to brain injury. Cannot rule out cerebral edema, or sepsis, or drug related. However she was put on the norepinephrine drip last night prior to todays events in which she received lorazepam, propofol, and fosphenytoin. She was being weaned down to 0.04 mcg/kg/minute this morning however with she has required increase to 0.1 mcg/kg/minute to support her while on propofol. (4) Hypoglycemia: Status: Acute Asessment and Plan: Patient is required repeated doses of dextrose 50% and a continuous drip of D10 100 mL an hour. Last glucose level was 167. (5) Insulin-requiring or dependent type II diabetes mellitus: Status: Acute (6) Aspiration pneumonia: Status: Acute Asessment and Plan: Sputum and blood cultures have been sent. Patient is currently on Unasyn and azithromycin. Urine strep antigen and urine Legionella antigen are pending. Sputum mycoplasma PCR is pending (7) Acute metabolic encephalopathy: Status: Acute Asessment and Plan: secondary to hypoglycemia (8) Hypomagnesemia: Status: Acute Asessment and Plan: 1.6 on admission corrected w/ iv boluses to 1.8 (9) Hypokalemia: Status: Acute Asessment and Plan: potassium was 3.7 on admission but dropped to 3.0 probably d/t dilution from D10 drip overnight. Has since been corrected w/ couple of KCL boluses of 20 meq. Now at 3.5 (10) Hypothyroidism (acquired): Status: Acute (11) Lack of intravenous access: Status: Acute Asessment and Plan: Dr. Snyder, general surgeon, was consulted to place triple lumen CVC which she place in the right subclavian, she attempted to place right radial artery catheter but d/t patient decerebrate movements was not able to place the A-line Discharge Plan Disposition Patient Disposition: [facility] Condition: Critical Discharge Details Reason For Visit: Hypoglycemic Coma Admit Date/Time: 12/23/21 14:53 Admit Provider: Nito Mejia Attending Provider: Nito Mejia Primary Care Provider: Unknown,Unknown Home Meds and New Rx's Prescriptions: No Action simvastatin 20 mg Tablet 20 mg PO DAILY docusate sodium [Colace] 100 mg Capsule 100 mg PO BID lisinopril 5 mg Tablet 5 mg PO DAILY albuterol 90 mcg/actuation Aerosol 180 mcg INHALATION Q6H Discharge Instructions Instructions: Status Epilepticus (DC), 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 (DC) Activity:: Bed rest Diet:: NPO Discharge Orders Discharge Orders: Discharge Order (Routine); Ordered 12/24/21 Ordered By: Nito Mejia DS: Summary Time Spent with Patient providing and/or coordinating discharge services: Greater than 30 minutes Specific discharge activities: exam of patient, educating family about need for transfer and alternative treatment options, coordination of transfer w/ receiving facility and discussion of case w/ accepting provider(s), completion of transfer orders and discharge summary Status at Discharge Functional status at discharge: bed bound Overall status at discharge: patient is not back to baseline Mental Status: other Speech and Movement: other Mood: other Affect: other Exam Narrative Exam Narrative: Patient comatose, sedated on propofol drip No visible lip smacking or chewing, pupils midpoint about 5 mm and minimally reactive to light, no nystagmus Lungs: rhochorous Heart: regular, tachycardic Abdomen: nondistended Neuro: sedated and intubated, she withdraws her extremities to noxious stimulation, Babinski surprisingly are absent (great toes down going, no fanning of other toes), at present she is not having any rhythmic movements of her limbs, she is not currently posturing Psych Mental Status: other Speech and Movement: other Mood: other Affect: other DS: Data Vitals/I&O Vitals and I&O: Vital Signs Temperature 38.2 C H 12/24/21 08:45 Temperature Source Temporal Artery Scan 12/24/21 08:45 Pulse 68 12/24/21 09:30 Pulse 71 12/24/21 09:31 Respiratory Rate 15 12/24/21 09:31 Respiratory Effort 12/24/21 08:45 Respiratory Depth Deep 12/24/21 08:45 Respiratory Pattern Normal 12/24/21 08:45 Blood Pressure 102/49 L 12/24/21 09:30 Blood Pressure Mean 63 12/24/21 09:30 Blood Pressure Position Right Lateral 12/24/21 08:45 Pulse Oximetry 99 12/24/21 09:31 Respiratory End-tidal CO2 36 12/24/21 09:31 Oxygen Delivery Method Mechanical Ventilator 12/24/21 12:49 Oxygen Flow Rate 0 12/24/21 12:49 Fraction of Inspired Oxygen (FIO2) 40 12/24/21 12:49 Pain Level 0 12/24/21 08:45 Intake & Output 12/23/21 12/24/21 12/24/21 23:59 11:59 23:59 Intake Total 3210.627 / 3210.627 3046.479 / 3380.479 334 / 3380.479 Output Total 2750 / 2750 Balance 3210.627 / 3210.627 296.479 / 630.479 334 / 630.479 Weight 58.967 kg 59.7 kg Intake: IV 3210.627 / 3210.627 3046.479 / 3380.479 334 / 3380.479 Output: Gastric Drainage 0 / 0 Left Nare 0 / 0 Urine 2750 / 2750 Other: Urine Color Pale Pale Yellow Yellow Urine Appearance Clear Clear Comment Nagel Nagel Data Completed and Pending Labs on day of discharge: Labs from last 24 hours 12/24/21 12/24/21 12/24/21 13:50 13:50 13:50 WBC RBC Hgb Hct MCV MCH MCHC RDW Plt Count MPV Immature Gran % Neutrophils % Lymphocytes % Monocytes % Eosinophils % Basophils % Nucleated RBC % Absolute Neutrophils Absolute Lymphocytes Absolute Monocytes Absolute Eosinophils Absolute Basophils RBC Morphology PT INR APTT D-Dimer ABG Sample Site ABG pH ABG pCO2 ABG pO2 ABG HCO3 ABG Total CO2 ABG O2 Saturation ABG Base Excess VBG pH 7.34 VBG pCO2 46 VBG pO2 53 VBG HCO3 25 VBG Total CO2 23 L VBG O2 Saturation 88 VBG Base Excess -1 VBG Lactate 1.5 H FiO2 Sodium 139 Potassium 3.5 Chloride 109 H Carbon Dioxide 26.6 Anion Gap 3.4 BUN 4 L Creatinine 0.7 Est GFR (CKD-EPI 2020) 102.71 Glucose 210 H Hemoglobin A1c Calcium 7.9 L Magnesium 1.8 Total Bilirubin 0.5 AST 44 H ALT 17 Alkaline Phosphatase 40 L Troponin I Total Protein 5.7 L Albumin 2.4 L Procalcitonin Urine Color Urine Clarity Urine pH Ur Specific [place] Urine Protein Urine Ketones Urine Blood Urine Nitrite Urine Bilirubin Urine Urobilinogen Ur Leukocyte Esterase Urine Glucose Urine Legionella Ag M. pneumoniae Source M. pneumoniae (PCR) Ur Strep pneumoniae Ag Add-On Test Request 12/24/21 12/24/21 12/24/21 13:50 13:50 13:50 WBC 13.07 H RBC 3.47 L Hgb 10.4 L Hct 29.8 L MCV 86 MCH 30.0 MCHC 34.9 RDW 13.0 Plt Count 215 MPV 10.9 Immature Gran % 0.3 Neutrophils % 62.3 Lymphocytes % 29.3 Monocytes % 7.4 Eosinophils % 0.3 Basophils % 0.4 Nucleated RBC % 0.0 Absolute Neutrophils 8.14 H Absolute Lymphocytes 3.83 H Absolute Monocytes 0.97 H Absolute Eosinophils 0.04 Absolute Basophils 0.05 RBC Morphology PT 12.6 H INR 1.3 H APTT 25.6 D-Dimer ABG Sample Site ABG pH ABG pCO2 ABG pO2 ABG HCO3 ABG Total CO2 ABG O2 Saturation ABG Base Excess VBG pH VBG pCO2 VBG pO2 VBG HCO3 VBG Total CO2 VBG O2 Saturation VBG Base Excess VBG Lactate FiO2 Sodium Cancelled Potassium Cancelled Chloride Cancelled Carbon Dioxide Cancelled Anion Gap Cancelled BUN Cancelled Creatinine Cancelled Est GFR (CKD-EPI 2020) Cancelled Glucose Cancelled Hemoglobin A1c Calcium Cancelled Magnesium Total Bilirubin AST ALT Alkaline Phosphatase Troponin I Total Protein Albumin Procalcitonin Urine Color Urine Clarity Urine pH Ur Specific [place] Urine Protein Urine Ketones Urine Blood Urine Nitrite Urine Bilirubin Urine Urobilinogen Ur Leukocyte Esterase Urine Glucose Urine Legionella Ag M. pneumoniae Source M. pneumoniae (PCR) Ur Strep pneumoniae Ag Add-On Test Request 12/24/21 12/24/21 12/24/21 13:35 13:05 13:05 WBC RBC Hgb Hct MCV MCH MCHC RDW Plt Count MPV Immature Gran % Neutrophils % Lymphocytes % Monocytes % Eosinophils % Basophils % Nucleated RBC % Absolute Neutrophils Absolute Lymphocytes Absolute Monocytes Absolute Eosinophils Absolute Basophils RBC Morphology PT INR APTT D-Dimer 859 H ABG Sample Site Left Radial ABG pH 7.40 ABG pCO2 41 ABG pO2 57 L ABG HCO3 25 ABG Total CO2 24 ABG O2 Saturation 92 L ABG Base Excess 0 VBG pH VBG pCO2 VBG pO2 VBG HCO3 VBG Total CO2 VBG O2 Saturation VBG Base Excess VBG Lactate FiO2 40 Sodium Potassium Chloride Carbon Dioxide Anion Gap BUN Creatinine Est GFR (CKD-EPI 2020) Glucose Hemoglobin A1c Calcium Magnesium Total Bilirubin AST ALT Alkaline Phosphatase Troponin I < 50 Total Protein Albumin Procalcitonin Urine Color Urine Clarity Urine pH Ur Specific [place] Urine Protein Urine Ketones Urine Blood Urine Nitrite Urine Bilirubin Urine Urobilinogen Ur Leukocyte Esterase Urine Glucose Urine Legionella Ag M. pneumoniae Source M. pneumoniae (PCR) Ur Strep pneumoniae Ag Add-On Test Request 12/24/21 12/24/21 12/24/21 12:55 12:00 12:00 WBC RBC Hgb Hct MCV MCH MCHC RDW Plt Count MPV Immature Gran % Neutrophils % Lymphocytes % Monocytes % Eosinophils % Basophils % Nucleated RBC % Absolute Neutrophils Absolute Lymphocytes Absolute Monocytes Absolute Eosinophils Absolute Basophils RBC Morphology PT INR APTT D-Dimer ABG Sample Site ABG pH ABG pCO2 ABG pO2 ABG HCO3 ABG Total CO2 ABG O2 Saturation ABG Base Excess VBG pH VBG pCO2 VBG pO2 VBG HCO3 VBG Total CO2 VBG O2 Saturation VBG Base Excess VBG Lactate FiO2 Sodium Potassium Chloride Carbon Dioxide Anion Gap BUN Creatinine Est GFR (CKD-EPI 2020) Glucose Hemoglobin A1c Calcium Magnesium Total Bilirubin AST ALT Alkaline Phosphatase Troponin I Total Protein Albumin Procalcitonin Urine Color Urine Clarity Urine pH Ur Specific [place] Urine Protein Urine Ketones Urine Blood Urine Nitrite Urine Bilirubin Urine Urobilinogen Ur Leukocyte Esterase Urine Glucose Urine Legionella Ag Pending M. pneumoniae Source Pending M. pneumoniae (PCR) Pending Ur Strep pneumoniae Ag Pending Add-On Test Request 12/24/21 12/24/21 12/24/21 12:00 07:50 05:25 WBC 17.28 H RBC 3.76 L Hgb 11.0 L Hct 31.8 L MCV 85 MCH 29.3 MCHC 34.6 RDW 12.6 Plt Count 259 MPV 10.9 Immature Gran % 0.0 Neutrophils % 58.0 Lymphocytes % 29.0 Monocytes % 13.0 Eosinophils % 0.0 Basophils % 0.0 Nucleated RBC % 0.0 Absolute Neutrophils 10.02 H Absolute Lymphocytes 5.01 H Absolute Monocytes 2.25 H Absolute Eosinophils 0.00 Absolute Basophils 0.00 RBC Morphology Normal PT INR APTT D-Dimer ABG Sample Site ABG pH ABG pCO2 ABG pO2 ABG HCO3 ABG Total CO2 ABG O2 Saturation ABG Base Excess VBG pH 7.32 VBG pCO2 52 H VBG pO2 39 VBG HCO3 26 VBG Total CO2 24 VBG O2 Saturation 72 VBG Base Excess 0 VBG Lactate FiO2 Sodium Potassium Chloride Carbon Dioxide Anion Gap BUN Creatinine Est GFR (CKD-EPI 2020) Glucose Hemoglobin A1c Calcium Magnesium Total Bilirubin AST ALT Alkaline Phosphatase Troponin I Total Protein Albumin Procalcitonin Urine Color Yellow Urine Clarity Clear Urine pH 6.0 Ur Specific [place] <= 1.005 Urine Protein Negative Urine Ketones Negative Urine Blood Negative Urine Nitrite Negative Urine Bilirubin Negative Urine Urobilinogen 0.2 Ur Leukocyte Esterase Negative Urine Glucose 100 Urine Legionella Ag M. pneumoniae Source M. pneumoniae (PCR) Ur Strep pneumoniae Ag Add-On Test Request 12/24/21 12/23/21 12/23/21 05:25 18:17 16:45 WBC RBC Hgb Hct MCV MCH MCHC RDW Plt Count MPV Immature Gran % Neutrophils % Lymphocytes % Monocytes % Eosinophils % Basophils % Nucleated RBC % Absolute Neutrophils Absolute Lymphocytes Absolute Monocytes Absolute Eosinophils Absolute Basophils RBC Morphology PT INR APTT D-Dimer ABG Sample Site Left Radial ABG pH 7.44 ABG pCO2 38 ABG pO2 215 H ABG HCO3 26 ABG Total CO2 Pending ABG O2 Saturation > 99 H ABG Base Excess 1 VBG pH VBG pCO2 VBG pO2 VBG HCO3 VBG Total CO2 VBG O2 Saturation VBG Base Excess VBG Lactate FiO2 60 Sodium 142 Potassium 3.0 L Chloride 107 Carbon Dioxide 27.5 Anion Gap 7.5 BUN 6 L Creatinine 0.8 Est GFR (CKD-EPI 2020) 87.50 Glucose 80 Hemoglobin A1c Calcium 8.2 L Magnesium 2.0 Total Bilirubin 0.8 AST 53 H ALT 16 Alkaline Phosphatase 45 L Troponin I < 50 Total Protein 6.1 L Albumin 2.6 L Procalcitonin Urine Color Urine Clarity Urine pH Ur Specific [place] Urine Protein Urine Ketones Urine Blood Urine Nitrite Urine Bilirubin Urine Urobilinogen Ur Leukocyte Esterase Urine Glucose Urine Legionella Ag M. pneumoniae Source M. pneumoniae (PCR) Ur Strep pneumoniae Ag Add-On Test Request 12/23/21 12/23/21 12/23/21 15:01 12:05 12:05 WBC RBC Hgb Hct MCV MCH MCHC RDW Plt Count MPV Immature Gran % Neutrophils % Lymphocytes % Monocytes % Eosinophils % Basophils % Nucleated RBC % Absolute Neutrophils Absolute Lymphocytes Absolute Monocytes Absolute Eosinophils Absolute Basophils RBC Morphology PT INR APTT D-Dimer ABG Sample Site ABG pH ABG pCO2 ABG pO2 ABG HCO3 ABG Total CO2 ABG O2 Saturation ABG Base Excess VBG pH VBG pCO2 VBG pO2 VBG HCO3 VBG Total CO2 VBG O2 Saturation VBG Base Excess VBG Lactate FiO2 Sodium Potassium Chloride Carbon Dioxide Anion Gap BUN Creatinine Est GFR (CKD-EPI 2020) Glucose Hemoglobin A1c 6.5 H Calcium Magnesium Total Bilirubin AST ALT Alkaline Phosphatase Troponin I Cancelled Total Protein Albumin Procalcitonin < 0.1 Urine Color Urine Clarity Urine pH Ur Specific [place] Urine Protein Urine Ketones Urine Blood Urine Nitrite Urine Bilirubin Urine Urobilinogen Ur Leukocyte Esterase Urine Glucose Urine Legionella Ag M. pneumoniae Source M. pneumoniae (PCR) Ur Strep pneumoniae Ag Add-On Test Request 12/23/21 12:05 WBC RBC Hgb Hct MCV MCH MCHC RDW Plt Count MPV Immature Gran % Neutrophils % Lymphocytes % Monocytes % Eosinophils % Basophils % Nucleated RBC % Absolute Neutrophils Absolute Lymphocytes Absolute Monocytes Absolute Eosinophils Absolute Basophils RBC Morphology PT INR APTT D-Dimer ABG Sample Site ABG pH ABG pCO2 ABG pO2 ABG HCO3 ABG Total CO2 ABG O2 Saturation ABG Base Excess VBG pH VBG pCO2 VBG pO2 VBG HCO3 VBG Total CO2 VBG O2 Saturation VBG Base Excess VBG Lactate FiO2 Sodium Potassium Chloride Carbon Dioxide Anion Gap BUN Creatinine Est GFR (CKD-EPI 2020) Glucose Hemoglobin A1c Calcium Magnesium Total Bilirubin AST ALT Alkaline Phosphatase Troponin I Total Protein Albumin Procalcitonin Urine Color Urine Clarity Urine pH Ur Specific [place] Urine Protein Urine Ketones Urine Blood Urine Nitrite Urine Bilirubin Urine Urobilinogen Ur Leukocyte Esterase Urine Glucose Urine Legionella Ag M. pneumoniae Source M. pneumoniae (PCR) Ur Strep pneumoniae Ag Add-On Test Request DONE 12/24/21 12:29 Nose MRSA Screen - Pending 12/24/21 12:00 Urine - Cath Nagel Indwelling Urine Culture - Pending 12/24/21 08:50 Sputum Sputum Culture - Pending 12/23/21 16:17 Blood Blood Culture - Pending 12/23/21 16:12 Blood Blood Culture - Pending Preliminary micro results at discharge 12/24/21 12:29 MRSA Screen - Pending Nose 12/24/21 12:00 Urine Culture - Pending Urine - Cath Nagel Indwelling 12/24/21 08:50 Sputum Culture - Pending Sputum 12/23/21 16:17 Blood Culture - Pending Blood 12/23/21 16:12 Blood Culture - Pending Blood PFSH All Active Problems Hypotension (Acute) Status epilepticus (Acute) Lack of intravenous access (Acute) Hypokalemia (Acute) Aspiration pneumonia (Acute) Hypothyroidism (acquired) (Acute) Essential hypertension (Acute) Insulin-requiring or dependent type II diabetes mellitus (Acute ~1991) Hypomagnesemia (Acute) Acute respiratory failure (Acute) Acute metabolic encephalopathy (Acute) Hypoglycemia (Acute) Medical History Asthma 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
--- NOTE | 2021-12-24 15:30 | DI.CT_ITS ---
Exam(s) CT HEAD - STROKE PROTOCOL EXAM: CT HEAD - STROKE PROTOCOL CLINICAL HISTORY: comatose, seizure. TECHNIQUE: Imaging Protocol: Axial computed tomography images with coronal and sagittal reformatted images were created and reviewed COMPARISON: No exams were available for comparison FINDINGS: Ventricles and Extra axial spaces: Normal in size and morphology for the patient's age. Hemorrhage: None. Cerebral parenchyma: Normal. Midline shift: None. Brainstem/Cerebellum: Normal. Calvarium: Normal. Visualized Paranasal sinuses/Mastoids: Nasogastric tube. Multifocal mucosal thickening. Prior masto id surgery. Soft Tissues: Unremarkable. IMPRESSION: No acute intracranial process. RADIATION DOSE DELIVERED: 673.05mGy.cm Total DLP DATA REPOSITORY: All CT scans at this facility are submitted to the National Radiology Data Registry (NRDR) Dose Index Registry (DIR) with the [employer] ([employer]). RADIATION OPTIMIZATION: All CT scans at this facility use at least one of these dose optimization te chniques: automated exposure control; mA and/or kV adjustment per patient size (includes targeted exa ms where dose is matched to clinical indication); or iterative reconstruction.
--- NOTE | 2021-12-24 16:08 | DI.VRAD_ITS ---
PROCEDURE INFORMATION: Exam: CT Head Without Contrast Exam date and time: 12/24/2021 4:02 PM Age: 56 years old Clinical indication: Coma or unconsciousness TECHNIQUE: Imaging protocol: Computed tomography of the head without contrast. COMPARISON: CT HEAD - STROKE PROTOCOL 12/23/2021 12:40 PM FINDINGS: Brain: Age-related atrophy and chronic white matter ischemic changes, with no evidence of an acute intracranial abnormality. No hemorrhage, mass effect or midline shift. Cerebral ventricles: No ventriculomegaly. Paranasal sinuses: Air-fluid levels present within the maxillary sinuses bilaterally. Mucosal thickening noted within the ethmoid air cells. Mastoid air cells: Visualized mastoid air cells are well aerated. Bones/joints: No acute fracture. Soft tissues: No acute changes IMPRESSION: 1. Age-related atrophy and chronic white matter ischemic changes, with no evidence of an acute intracranial abnormality. 2. No hemorrhage, mass effect or midline shift. 3. Air-fluid levels present within the maxillary sinuses bilaterally. Dictated and Authenticated by: Delmer Morris MD. Ordering:[facility] Roberto Beauchamp MD
--- NOTE | 2021-12-25 02:02 | NUR.NOTE ---
Nursing Note: called [facility] to report gram +cocci in aerobic bottle per lab. spoke to Ken Benavides RN
[2021-12-26 21:14] LABS: Legionella Ag Detection Urine Negative (Negative)
[2021-12-27 15:09] LABS: Streptococcus Pneumoniae Ag, U Negative (Negative)
== END 2021-12-24 16:00 | disposition short-term general hospital (02) | DRG 917 ==
LOC: ER 15:22 → ICU 16:26
PROVIDERS: Admitting Provider Internal Medicine; Emergency Provider Emergency Medicine; Visit Provider Internal Medicine
DX: T38.3X1A Poisoning by insulin and oral hypoglycemic [antidiabetic] drugs, accidental (unintentional), initial encounter (principal); E11.641 Type 2 diabetes mellitus with hypoglycemia with coma; J69.0 Pneumonitis due to inhalation of food and vomit; J96.00 Acute respiratory failure, unspecified whether with hypoxia or hypercapnia; G93.41 Metabolic encephalopathy; G40.901 Epilepsy, unspecified, not intractable, with status epilepticus; E83.42 Hypomagnesemia; E03.9 Hypothyroidism, unspecified; I10 Essential (primary) hypertension; Z79.84 Long term (current) use of oral hypoglycemic drugs; Z79.4 Long term (current) use of insulin; J45.909 Unspecified asthma, uncomplicated; E78.00 Pure hypercholesterolemia, unspecified; Z86.73 Personal history of transient ischemic attack (TIA), and cerebral infarction without residual deficits; K57.90 Diverticulosis of intestine, part unspecified, without perforation or abscess without bleeding; F79 Unspecified intellectual disabilities; E87.6 Hypokalemia; F99 Mental disorder, not otherwise specified; I95.9 Hypotension, unspecified
CPT/HCPCS: 93308; 31500; 36410; 36415; 36416; 51702; 71045; 80048; 80053; 80307; 82805; 82962; 84145; 87040; 87077; 87081; 87449; 87637; 93005; 96361; 96365; 96366; 96368; 96375; 99222; 99285; J1650; 36600; 70450; 80320; 80329; 81003; 81015; 83036; 83605; 83735; 84484; 85025; 85379; 85610; 85730; 87070; 87086; 87186; 87205; 87581; 87899; 93010; 94002; 94003; 94640; 99239; 99291; J0131; J0295; J0456; J1953; J2250; J2310; J3475; J3480; J3490; J7620